=== PATIENT | female | born 1960 | race Caucasian/White ===

== ENCOUNTER → 2019-11-10 | Outpatient (REF) | payer OTHER ==
[2019-11-10 14:13] LABS: CREATININE FOR GFR 2.44 MG/DL (0.55-1.30); FREE T4 1.34 NG/DL (0.76-1.46); GLOMERULAR FILTRATION RATE 21.7 (>51); POTASSIUM SERUM 5.1 MEQ/L (3.5-5.1); THYROID STIMULATING HORMONE 0.947 uIU/ML (0.358-3.740); VALPROIC ACID (DEPAKOTE) 66.8 UG/ML (50.0-100.0)
[2019-11-10 15:03] LABS: HEMOGLOBIN A1c 5.3 %
== END ==
LOC: M SFHCPLAZ 09:39
PROVIDERS: ATTEND Family Medicine
DX: F25.9 Schizoaffective disorder, unspecified (principal); E03.9 Hypothyroidism, unspecified

== ENCOUNTER → 2019-11-18 | Outpatient (CLI) | payer OTHER ==
--- NOTE | 2019-11-18 14:59 | REP ---
Clinical: Chronic renal disease. Technique: Real time milligan scale ultrasound examination using curved array transducer. Findings: The bilateral kidneys are diffusely hyperechoic with scattered parenchymal echogenic foci carpeting the bilateral renal parenchyma which may represent tiny calcifications or renovascular disease. Bilateral renal cysts are also appreciated measuring up to 1.3 cm and 1.6 cm in the right kidney and 1.3 cm in left kidney. No hydronephrosis or discrete renal mass lesion identified. The bladder is unremarkable. Right kidney measures 10.8 x 5.5 x 4.3 cm Left kidney measures and 0.2 x 3.8 x 4.8 cm Impression: Diffusely hyperechoic kidneys with innumerable scattered tiny echogenic foci suggesting calcifications and bilateral cysts.
== END ==
LOC: M WHC 09:36
PROVIDERS: ATTEND Student in an Organized Health Care Education/Training Program
DX: N18.9 Chronic kidney disease, unspecified (principal); N28.1 Cyst of kidney, acquired; N28.89 Other specified disorders of kidney and ureter

== ENCOUNTER → 2019-12-07 | Outpatient (REF) | payer OTHER ==
[2019-12-07 17:52] LABS: ALBUMIN 2.8 GM/DL (3.2-5.2); BILIRUBIN,TOTAL 0.3 MG/DL (0.2-1.0); CALCIUM LEVEL 8.2 MG/DL (8.5-10.1); CHOLESTEROL RISK RATIO 2.569 (<5); CREATININE FOR GFR 2.15 MG/DL (0.55-1.30); GLOMERULAR FILTRATION RATE 25.1 (>51); POTASSIUM SERUM 5.1 MEQ/L (3.5-5.1); TOTAL PROTEIN 7.4 GM/DL (6.4-8.2)
[2019-12-07 17:59] LABS: HEMATOCRIT 35.2 % (36.0-47.0); HEMOGLOBIN 11.2 g/dl (12.0-15.5); MEAN CORPUSCULAR HEMOGLOBIN 31.5 pg (27.0-33.0); MEAN CORPUSCULAR HGB CONC 31.8 g/dl (32.0-36.5); MEAN CORPUSCULAR VOLUME 98.9 fl (80.0-96.0); PLATELET COUNT, AUTOMATED 287 10^3/uL (150-450); RED BLOOD COUNT 3.56 10^6/uL (4.00-5.40); WHITE BLOOD COUNT 9.5 10^3/uL (4.0-10.0)
[2019-12-07 18:18] LABS: CREATININE,RANDOM URINE < 13.0 MG/DL; SODIUM,RANDOM URINE 16 MEQ/L
[2019-12-07 18:51] LABS: APPEARANCE, URINE CLEAR (CLEAR); BACTERIA, URINE AUTO 1+ (NEGATIVE); BILIRUBIN, URINE AUTO NEGATIVE (NEGATIVE); BLOOD, URINE BLOOD NEGATIVE (NEGATIVE); COLOR, URINE STRAW (YELLOW); GLUCOSE, URINE (UA) AUTO NEGATIVE (NEGATIVE); KETONE, URINE AUTO NEGATIVE (NEGATIVE); LEUKOCYTE ESTERASE, URINE AUTO 2+ (NEGATIVE); NITRITE, URINE AUTO NEGATIVE (NEGATIVE); PROTEIN, URINE AUTO NEGATIVE (NEGATIVE); RBC, URINE AUTO 1 /HPF (0-3); SPECIFIC GRAVITY URINE AUTO 1.002 (1.002-1.035); SQUAMOUS EPITHELIAL CELL UR AU 0 /HPF (0-6); UROBILINOGEN, URINE AUTO 0.2 mg/dL (0.0-2.0); WBC, URINE AUTO 9 /HPF (0-3)
[2019-12-09 18:13] LABS: ANA (HEP2) Negative (.)
== END ==
LOC: M SFHCPLAZ 14:55
PROVIDERS: ATTEND Family Medicine
DX: Z51.81 Encounter for therapeutic drug level monitoring (principal); Z79.899 Other long term (current) drug therapy; N18.9 Chronic kidney disease, unspecified

== ENCOUNTER → 2020-02-16 | Outpatient (CLI) | payer OTHER | LOC: M WHC 13:30 | PROVIDERS: ATTEND Advanced Practice Midwife | DX: Z12.31 Encounter for screening mammogram for malignant neoplasm of breast (principal) ==

== ENCOUNTER → 2020-03-09 | Outpatient (CLI) | payer OTHER ==
[2020-03-09 09:42] LABS: BASO # 0.1 10^3/uL (0.0-0.2); BASO % 0.5 % (0.0-1.0); EOS # 0.2 10^3/uL (0.0-0.5); EOS % 1.9 % (0.0-3.0); HEMATOCRIT 40.7 % (36.0-47.0); HEMOGLOBIN 13.2 g/dl (12.0-15.5); LYMPH # 1.8 10^3/uL (1.5-5.0); LYMPH % 16.6 % (24.0-44.0); MEAN CORPUSCULAR HEMOGLOBIN 31.7 pg (27.0-33.0); MEAN CORPUSCULAR HGB CONC 32.4 g/dl (32.0-36.5); MEAN CORPUSCULAR VOLUME 97.6 fl (80.0-96.0); MONO # 1.5 10^3/uL (0.0-0.8); MONO % 13.8 % (0.0-5.0); NEUTROPHILS # 6.9 10^3/uL (1.5-8.5); NEUTROPHILS % 65.5 % (36.0-66.0); PLATELET COUNT, AUTOMATED 271 10^3/uL (150-450); RED BLOOD COUNT 4.17 10^6/uL (4.00-5.40); WHITE BLOOD COUNT 10.5 10^3/uL (4.0-10.0)
[2020-03-09 10:55] LABS: ALBUMIN 2.8 GM/DL (3.2-5.2); BILIRUBIN,DIRECT 0.2 MG/DL (0.0-0.2); BILIRUBIN,TOTAL 0.4 MG/DL (0.2-1.0); CALCIUM LEVEL 9.3 MG/DL (8.5-10.1); CHOLESTEROL RISK RATIO 2.75 (<5); CREATININE FOR GFR 2.05 MG/DL (0.55-1.30); GLOMERULAR FILTRATION RATE 26.5 (>51); THYROID STIMULATING HORMONE 0.684 uIU/ML (0.358-3.740); TOTAL PROTEIN 7.9 GM/DL (6.4-8.2); VALPROIC ACID (DEPAKOTE) 72.1 UG/ML (50.0-100.0)
[2020-03-09 12:19] LABS: HEMOGLOBIN A1c 5.5 %
== END ==
LOC: M LAB 08:51
PROVIDERS: ATTEND Registered Nurse
DX: F25.0 Schizoaffective disorder, bipolar type (principal)

== ENCOUNTER → 2020-05-13 | Outpatient (REF) | payer OTHER ==
[2020-05-13 14:05] LABS: FERRITIN 277 NG/ML (8-252); IRON (FE) 42 UG/DL (50-170); PERCENT SATURATION 20.8 % (13.2-45.0); TOTAL IRON BINDING CAPACITY 202 UG/DL (250-450); TOTAL PROTEIN 7.7 GM/DL (6.4-8.2)
[2020-05-13 14:09] LABS: VITAMIN B12 LEVEL > 2000 PG/ML
[2020-05-13 14:10] LABS: FOLATE 18.9 NG/ML
[2020-05-16 12:07] LABS: ALBUMIN 2.53 GM/DL (3.29-5.55); ALBUMIN % 32.9 % (55.8-66.1); ALPHA-1-GLOBULINS 0.46 GM/DL (0.17-0.41); ALPHA-2-GLOBULINS 0.93 GM/DL (0.42-0.99); ALPHA-2-GLOBULINS % 12.1 % (7.1-11.8); BETA-1-GLOBULINS % 4.9 % (4.7-7.2); BETA-2-GLOBULINS % 6.2 % (3.2-6.5); GAMMA GLOBULIN % 37.9 % (11.1-18.8)
[2020-05-16 12:08] LABS: BETA-1-GLOBULINS 0.38 GM/DL (0.28-0.60); BETA-2-GLOBULINS 0.48 GM/DL (0.19-0.55); GAMMA GLOBULINS 2.92 GM/DL (0.65-1.58)
== END ==
LOC: M LAB REF 12:40
PROVIDERS: ATTEND Internal Medicine Nephrology
DX: D64.9 Anemia, unspecified (principal); D72.829 Elevated white blood cell count, unspecified

== ENCOUNTER → 2020-06-14 | Outpatient (CLI) | payer OTHER ==
--- NOTE | 2020-06-14 10:58 | REPMRS ---
Patient History The patient states she has not had a clinical breast exam in over a year. Patient is postmenopausal and has history of ovarian cancer at age 26. Family history of prostate cancer in father, breast cancer in sister, breast cancer in sister. No Hormone Replacement Therapy 3D TOMOSYNTHESIS WAS PERFORMED. The [facility] lifetime risk for breast cancer is 7.5%. Volpara breast density c. Digital Woman Screen Mammo: June 14, 2020 - Exam #: [id number] Bilateral CC and MLO view(s) were taken. Technologist: Margot Lee, Technologist No prior studies available for comparison. FINDINGS: The breast tissue is heterogeneously dense. This may lower the sensitivity of mammography. There is a moderate amount of residual fibroglandular tissue which is fairly symmetric. There is no dominant mass, areas of architectural distortion, or clustered microcalcification typical of malignancy. Assessment: BI-RADS/ACR category 1 mammogram. Negative Mammogram. Recommendation Routine screening mammogram in 1 year (for women over age 40). This mammogram was interpreted with the aid of an FDA-approved computer-aided dectection system. Electronically Signed By: Dominick Fried MD 06/14/20 [id number]
== END ==
LOC: M WHC 10:08
PROVIDERS: ATTEND Family Medicine
DX: Z12.31 Encounter for screening mammogram for malignant neoplasm of breast (principal); Z85.43 Personal history of malignant neoplasm of ovary; Z80.3 Family history of malignant neoplasm of breast

== ENCOUNTER → 2020-06-20 | Outpatient (REF) | payer OTHER | LOC: M LAB REF 17:00 | PROVIDERS: ATTEND Internal Medicine Nephrology | DX: D64.9 Anemia, unspecified (principal) ==

== ENCOUNTER → 2020-10-06 | Outpatient (REF) | payer OTHER ==
[~2020-10-06] MED LIST: ASPE4PAD TOP; BUSP10TA PO; CHLO20TA PO; CHLOR50TA PO; DEPA1TAB3 PO; DEPA250T32 PO; FERR325T3 PO; MM S100C PO; NORV5TAB PO; NOXI1TAB PO; PURE500C5 PO; SYNT175T2 PO; ZYPR10TA PO
[2020-10-06 13:38] LABS: HEMATOCRIT 35.4 % (36.0-47.0); HEMOGLOBIN 11.6 g/dl (12.0-15.5); MEAN CORPUSCULAR HEMOGLOBIN 31.8 pg (27.0-33.0); MEAN CORPUSCULAR HGB CONC 32.8 g/dl (32.0-36.5); PLATELET COUNT, AUTOMATED 218 10^3/uL (150-450); RED BLOOD COUNT 3.65 10^6/uL (4.00-5.40)
[2020-10-06 14:07] LABS: CALCIUM LEVEL 9.3 MG/DL (8.5-10.1); CREATININE FOR GFR 2.01 MG/DL (0.55-1.30); PHOSPHORUS LEVEL 3.8 MG/DL (2.5-4.9); POTASSIUM SERUM 4.4 MEQ/L (3.5-5.1)
== END ==
LOC: M SFHCPLAZ 11:41
PROVIDERS: ATTEND Family Medicine
DX: N18.4 Chronic kidney disease, stage 4 (severe) (principal)

== ENCOUNTER → 2020-11-22 | Outpatient (CLI) | payer OTHER ==
[2020-11-22 09:54] LABS: BASO # 0.1 10^3/uL (0.0-0.2); BASO % 0.8 % (0.0-1.0); EOS # 0.1 10^3/uL (0.0-0.5); EOS % 1.7 % (0.0-3.0); HEMATOCRIT 39.4 % (36.0-47.0); HEMOGLOBIN 12.9 g/dl (12.0-15.5); LYMPH # 1.3 10^3/uL (1.5-5.0); LYMPH % 17.3 % (24.0-44.0); MEAN CORPUSCULAR HEMOGLOBIN 33.1 pg (27.0-33.0); MEAN CORPUSCULAR HGB CONC 32.7 g/dl (32.0-36.5); MONO # 1.4 10^3/uL (0.0-0.8); MONO % 17.8 % (2.0-8.0); NEUTROPHILS # 4.6 10^3/uL (1.5-8.5); NEUTROPHILS % 59.9 % (36.0-66.0); PLATELET COUNT, AUTOMATED 223 10^3/uL (150-450); WHITE BLOOD COUNT 7.6 10^3/uL (4.0-10.0)
[2020-11-22 10:30] LABS: BILIRUBIN,DIRECT 0.2 MG/DL (0.0-0.2); BILIRUBIN,TOTAL 0.3 MG/DL (0.2-1.0); CALCIUM LEVEL 9.2 MG/DL (8.5-10.1); CHOLESTEROL RISK RATIO 2.359 (<5); CREATININE FOR GFR 2.46 MG/DL (0.55-1.30); GLOMERULAR FILTRATION RATE 21.4 (>51); PHOSPHORUS LEVEL 4.6 MG/DL (2.5-4.9); POTASSIUM SERUM 5.1 MEQ/L (3.5-5.1); THYROID STIMULATING HORMONE 0.978 uIU/ML (0.358-3.740); TOTAL PROTEIN 7.8 GM/DL (6.4-8.2); VALPROIC ACID (DEPAKOTE) 74.7 UG/ML (50.0-100.0)
[2020-11-22 10:31] LABS: HEMOGLOBIN A1c 5.2 %
[2020-11-22 11:57] LABS: TOTAL 25(OH) VITAMIN D 32.8 NG/ML (30.0-100.0)
--- NOTE | 2020-11-22 23:34 | ECGEPIP ---
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 Fine baseline noise. No prior ECG available for comparison at the time of interpretation. Electronically Signed on 11-22-2020 23:34:30 EDT by Rickey Zuluaga
== END ==
LOC: M LAB 09:11
PROVIDERS: ATTEND Registered Nurse
DX: F25.9 Schizoaffective disorder, unspecified (principal)

== ENCOUNTER → 2021-01-19 | Outpatient (REF) | payer OTHER | LOC: M LAB REF 17:27 | PROVIDERS: ATTEND Internal Medicine Nephrology | DX: N18.4 Chronic kidney disease, stage 4 (severe) (principal) ==

== ENCOUNTER 2021-01-29 07:59 | Emergency (ER) | payer OTHER ==
[~2021-01-29] VITALS: Ht 170.2 cm; Wt 84.1 kg
[2021-01-29] MEDS ORDERED: VITA200016 (08:13)
[2021-01-29] MEDS ORDERED: ACET-683 (08:13)
[2021-01-29] MEDS ORDERED: ACETAMINOPHEN TAB 650MG DOSE (2X325MG) PO ONE (08:15)
[2021-01-29] MEDS ORDERED: traMADol 50 MG TAB PO ONE (08:15)
--- NOTE | 2021-01-29 08:39 | REP ---
INDICATION: trauma COMPARISON: None. TECHNIQUE: AP and frog-lateral views of the left femur FINDINGS: No acute fracture or dislocation. Skeletal structures, joint spaces, and surrounding soft tissues appear relatively normal. IMPRESSION: . No acute fracture or dislocation. <Electronically signed by Ezequiel Johnston > 01/29/21 [id number]
[2021-01-29] MEDS ORDERED: CANEMIS XX (10:06)
[2021-01-29 10:13] VITALS: BP 162/89
== END 2021-01-29 10:15 | disposition home or self-care (01) ==
LOC: M ED 07:59
DX: S70.12XA Contusion of left thigh, initial encounter (principal); W22.8XXA Striking against or struck by other objects, initial encounter; Y92.018 Other place in single-family (private) house as the place of occurrence of the external cause; J44.9 Chronic obstructive pulmonary disease, unspecified; F33.9 Major depressive disorder, recurrent, unspecified; F41.9 Anxiety disorder, unspecified; Z79.899 Other long term (current) drug therapy; Z88.5 Allergy status to narcotic agent; Z88.8 Allergy status to other drugs, medicaments and biological substances

== ENCOUNTER 2021-01-30 16:38 | Inpatient (IN) | payer OTHER ==
[~2021-01-30] VITALS: Ht 170.2 cm; Wt 83.6 kg
[~2021-01-30 16:38] MED LIST changes: +ACET-683; +CANEMIS XX; +VITA200016
[2021-01-31 03:42] LABS: BASO # 0.1 10^3/uL (0.0-0.2); BASO % 0.6 % (0.0-1.0); EOS # 0.1 10^3/uL (0.0-0.5); EOS % 1.1 % (0.0-3.0); HEMATOCRIT 41.5 % (36.0-47.0); HEMOGLOBIN 13.5 g/dl (12.0-15.5); LYMPH # 1.3 10^3/uL (1.5-5.0); LYMPH % 15.5 % (24.0-44.0); MEAN CORPUSCULAR HEMOGLOBIN 32.9 pg (27.0-33.0); MEAN CORPUSCULAR HGB CONC 32.5 g/dl (32.0-36.5); MEAN CORPUSCULAR VOLUME 101.2 fl (80.0-96.0); MONO # 1.6 10^3/uL (0.0-0.8); MONO % 19.8 % (2.0-8.0); NEUTROPHILS % 60.8 % (36.0-66.0); PLATELET COUNT, AUTOMATED 214 10^3/uL (150-450)
[2021-01-31 04:00] LABS: WHITE BLOOD COUNT 8.3 10^3/uL (4.0-10.0)
[2021-01-31] MEDS ORDERED: NORCO, ANEXSIA 5/325MG TABLET (HYDROcodone/ACETAMINOPHEN) PO ONE (04:15)
[2021-01-31] MEDS ORDERED: VENTAER INH (06:55)
[2021-01-31] MEDS ORDERED: AMMO12CR7 TOP (06:55)
[2021-01-31] MEDS ORDERED: VITA200021 PO (06:55)
[2021-01-31] MEDS ORDERED: CHLOR50TA PO (06:55)
[2021-01-31] MEDS ORDERED: DOCU100C17 PO (06:55)
[2021-01-31] MEDS ORDERED: ACET-897 PO (06:55)
[2021-01-31] MEDS ORDERED: NORV5TAB PO (06:55)
[2021-01-31] MEDS ORDERED: CHLO200T11 PO (06:55)
[2021-01-31] MEDS ORDERED: VITA500T10 PO (06:55)
[2021-01-31] MEDS ORDERED: DIVA250T67 PO (06:55)
[2021-01-31] MEDS ORDERED: VITA1TAB35 PO (06:55)
[2021-01-31] MEDS ORDERED: SYNT175T2 PO (06:55)
[2021-01-31] MEDS ORDERED: HOME MED LIST COMPLETE! XX SCH (07:00)
[2021-01-31 07:24] LABS: RSV AMPLIFICATION NEGATIVE (NEGATIVE)
[2021-01-31] MEDS ORDERED: ALBUTEROL 90 MCG/ACT 8GM HFA INHALER INH PRN (08:00)
[2021-01-31] MEDS: ACETAMINOPHEN 500 MG TAB PO PRN ×2 (08:13→22:08)
[2021-01-31 09:45] VITALS: BP 145/84
[2021-01-31] MEDS: DIVALPROEX 500 MG TAB PO SCH ×2 (10:30→22:05)
[2021-01-31] MEDS: ChlorproMAZINE 100 MG TABLET PO SCH ×2 (10:30→22:05)
[2021-01-31] MEDS: FERROUS SULFATE 325MG TAB PO SCH (10:30)
[2021-01-31] MEDS: LEVOTHYROXINE 25MCG TABLET (0.025MG) PO SCH (10:30)
[2021-01-31] MEDS: HEPARIN SOD (PORCINE) 5000UNITS/ML 1ML VIAL/SYRINGE SC SCH ×2 (10:30→22:06)
[2021-01-31] MEDS: busPIRone 10 MG TAB PO SCH ×2 (10:30→22:05)
[2021-01-31] MEDS: OLANZapine 10 MG TAB PO SCH (10:30)
[2021-01-31] MEDS: DIVALPROEX 250 MG TAB PO SCH ×2 (10:31→22:04)
[2021-01-31] MEDS: LEVOTHYROXINE 150MCG TABLET (0.15MG) PO SCH (10:31)
[2021-01-31] MEDS: ASCORBIC ACID 500 MG TAB PO SCH (10:31)
[2021-01-31] MEDS: DOCUSATE SODIUM 100MG CAPSULE PO SCH ×2 (10:31→22:05)
[2021-01-31] MEDS: LACTIC ACID 12% LOTION 225 GM BTL TOP SCH (10:35)
[2021-01-31] MEDS: chlorproMAZINE 25 MG TABLET PO SCH ×2 (10:35→14:00)
[2021-01-31 14:00] VITALS: BP 148/85
[2021-01-31 22:00] VITALS: BP 148/87
[2021-01-31] MEDS: amLODIPine 5 MG TAB PO SCH (22:05)
[2021-02-01] MEDS: LEVOTHYROXINE 25MCG TABLET (0.025MG) PO SCH (05:32)
[2021-02-01] MEDS: LEVOTHYROXINE 150MCG TABLET (0.15MG) PO SCH (05:32)
[2021-02-01 06:32] LABS: HEMATOCRIT 35.4 % (36.0-47.0); HEMOGLOBIN 11.7 g/dl (12.0-15.5); MEAN CORPUSCULAR HEMOGLOBIN 33.1 pg (27.0-33.0); MEAN CORPUSCULAR HGB CONC 33.1 g/dl (32.0-36.5); MEAN CORPUSCULAR VOLUME 100.3 fl (80.0-96.0); PLATELET COUNT, AUTOMATED 184 10^3/uL (150-450); RED BLOOD COUNT 3.53 10^6/uL (4.00-5.40); WHITE BLOOD COUNT 6.5 10^3/uL (4.0-10.0)
[2021-02-01 06:40] LABS: CALCIUM LEVEL 8.9 MG/DL (8.5-10.1); CREATININE FOR GFR 2.52 MG/DL (0.55-1.30); GLOMERULAR FILTRATION RATE 20.8 (>51); MAGNESIUM LEVEL 2.4 MG/DL (1.8-2.4); POTASSIUM SERUM 4.7 MEQ/L (3.5-5.1)
[2021-02-01] MEDS: DOCUSATE SODIUM 100MG CAPSULE PO SCH ×2 (08:32→22:12)
[2021-02-01] MEDS: DIVALPROEX 500 MG TAB PO SCH ×2 (08:32→22:12)
[2021-02-01] MEDS: HEPARIN SOD (PORCINE) 5000UNITS/ML 1ML VIAL/SYRINGE SC SCH ×2 (08:33→22:13)
[2021-02-01] MEDS: DIVALPROEX 250 MG TAB PO SCH ×2 (08:33→22:12)
[2021-02-01] MEDS: chlorproMAZINE 25 MG TABLET PO SCH ×2 (08:33→15:18)
[2021-02-01] MEDS: OLANZapine 10 MG TAB PO SCH (08:33)
[2021-02-01] MEDS: ASCORBIC ACID 500 MG TAB PO SCH (08:33)
[2021-02-01] MEDS: busPIRone 10 MG TAB PO SCH ×2 (08:33→22:12)
[2021-02-01] MEDS: FERROUS SULFATE 325MG TAB PO SCH (08:33)
[2021-02-01] MEDS: LACTIC ACID 12% LOTION 225 GM BTL TOP SCH (08:34)
[2021-02-01] MEDS: GABAPENTIN 100 MG CAP PO SCH ×3 (10:20→22:12)
[2021-02-01 14:00] VITALS: BP 127/84
[2021-02-01 22:00] VITALS: BP 129/88
[2021-02-01] MEDS: ChlorproMAZINE 100 MG TABLET PO SCH (22:12)
[2021-02-01] MEDS: amLODIPine 5 MG TAB PO SCH (22:13)
[2021-02-01] MEDS: ACETAMINOPHEN 500 MG TAB PO PRN (22:14)
[2021-02-02] MEDS: LEVOTHYROXINE 150MCG TABLET (0.15MG) PO SCH (05:29)
[2021-02-02] MEDS: LEVOTHYROXINE 25MCG TABLET (0.025MG) PO SCH (05:29)
[2021-02-02 06:00] VITALS: BP 115/68
[2021-02-02 06:08] LABS: HEMATOCRIT 36.3 % (36.0-47.0); HEMOGLOBIN 11.6 g/dl (12.0-15.5); MEAN CORPUSCULAR HEMOGLOBIN 32.3 pg (27.0-33.0); MEAN CORPUSCULAR VOLUME 101.1 fl (80.0-96.0); PLATELET COUNT, AUTOMATED 195 10^3/uL (150-450); RED BLOOD COUNT 3.59 10^6/uL (4.00-5.40); WHITE BLOOD COUNT 7.2 10^3/uL (4.0-10.0)
[2021-02-02 06:28] LABS: CALCIUM LEVEL 8.8 MG/DL (8.5-10.1); CREATININE FOR GFR 2.76 MG/DL (0.55-1.30); GLOMERULAR FILTRATION RATE 18.7 (>51); MAGNESIUM LEVEL 2.5 MG/DL (1.8-2.4); POTASSIUM SERUM 4.9 MEQ/L (3.5-5.1)
[2021-02-02] MEDS: OLANZapine 10 MG TAB PO SCH (09:02)
[2021-02-02] MEDS: DIVALPROEX 250 MG TAB PO SCH ×2 (09:02→20:41)
[2021-02-02] MEDS: DIVALPROEX 500 MG TAB PO SCH ×2 (09:03→20:41)
[2021-02-02] MEDS: DOCUSATE SODIUM 100MG CAPSULE PO SCH ×2 (09:03→20:41)
[2021-02-02] MEDS: HEPARIN SOD (PORCINE) 5000UNITS/ML 1ML VIAL/SYRINGE SC SCH ×2 (09:03→20:42)
[2021-02-02] MEDS: FERROUS SULFATE 325MG TAB PO SCH (09:03)
[2021-02-02] MEDS: ASCORBIC ACID 500 MG TAB PO SCH (09:03)
[2021-02-02] MEDS: GABAPENTIN 100 MG CAP PO SCH ×3 (09:03→20:41)
[2021-02-02] MEDS: busPIRone 10 MG TAB PO SCH ×2 (09:03→20:41)
[2021-02-02] MEDS: LACTIC ACID 12% LOTION 225 GM BTL TOP SCH (09:04)
[2021-02-02] MEDS: chlorproMAZINE 25 MG TABLET PO SCH ×2 (09:06→15:09)
[2021-02-02 14:00] VITALS: BP 133/84
[2021-02-02] MEDS: ChlorproMAZINE 100 MG TABLET PO SCH (20:41)
[2021-02-02] MEDS: amLODIPine 5 MG TAB PO SCH (20:42)
[2021-02-03 05:00] VITALS: BP_SYST 128; BP_SYST 132; BP_DIAS 64; BP_DIAS 82
[2021-02-03] MEDS: LEVOTHYROXINE 150MCG TABLET (0.15MG) PO SCH (05:41)
[2021-02-03] MEDS: LEVOTHYROXINE 25MCG TABLET (0.025MG) PO SCH (05:41)
[2021-02-03 07:37] LABS: HEMATOCRIT 38.1 % (36.0-47.0); HEMOGLOBIN 12.4 g/dl (12.0-15.5); MEAN CORPUSCULAR HEMOGLOBIN 32.7 pg (27.0-33.0); MEAN CORPUSCULAR HGB CONC 32.5 g/dl (32.0-36.5); MEAN CORPUSCULAR VOLUME 100.5 fl (80.0-96.0); PLATELET COUNT, AUTOMATED 216 10^3/uL (150-450); RED BLOOD COUNT 3.79 10^6/uL (4.00-5.40)
[2021-02-03 08:01] LABS: CALCIUM LEVEL 9.1 MG/DL (8.5-10.1); CREATININE FOR GFR 2.81 MG/DL (0.55-1.30); GLOMERULAR FILTRATION RATE 18.3 (>51); MAGNESIUM LEVEL 2.6 MG/DL (1.8-2.4); POTASSIUM SERUM 4.6 MEQ/L (3.5-5.1)
[2021-02-03] MEDS: FERROUS SULFATE 325MG TAB PO SCH (08:56)
[2021-02-03] MEDS: GABAPENTIN 100 MG CAP PO SCH ×3 (08:57→20:52)
[2021-02-03] MEDS: HEPARIN SOD (PORCINE) 5000UNITS/ML 1ML VIAL/SYRINGE SC SCH ×2 (08:57→20:52)
[2021-02-03] MEDS: chlorproMAZINE 25 MG TABLET PO SCH ×2 (08:57→15:35)
[2021-02-03] MEDS: DIVALPROEX 500 MG TAB PO SCH ×2 (08:57→20:52)
[2021-02-03] MEDS: busPIRone 10 MG TAB PO SCH ×2 (08:57→20:52)
[2021-02-03] MEDS: ASCORBIC ACID 500 MG TAB PO SCH (08:57)
[2021-02-03] MEDS: DIVALPROEX 250 MG TAB PO SCH ×2 (08:57→20:52)
[2021-02-03] MEDS: OLANZapine 10 MG TAB PO SCH (08:57)
[2021-02-03] MEDS: DOCUSATE SODIUM 100MG CAPSULE PO SCH ×2 (08:57→20:51)
[2021-02-03] MEDS: LACTIC ACID 12% LOTION 225 GM BTL TOP SCH (08:58)
[2021-02-03] MEDS: ACETAMINOPHEN 500 MG TAB PO PRN (15:36)
[2021-02-03] MEDS: amLODIPine 5 MG TAB PO SCH (20:53)
[2021-02-03] MEDS: ChlorproMAZINE 100 MG TABLET PO SCH (20:55)
[2021-02-04] MEDS: LEVOTHYROXINE 25MCG TABLET (0.025MG) PO SCH (05:25)
[2021-02-04] MEDS: LEVOTHYROXINE 150MCG TABLET (0.15MG) PO SCH (05:25)
[2021-02-04 06:00] VITALS: BP 133/60
[2021-02-04 06:06] LABS: HEMATOCRIT 34.1 % (36.0-47.0); HEMOGLOBIN 11.1 g/dl (12.0-15.5); MEAN CORPUSCULAR HEMOGLOBIN 32.8 pg (27.0-33.0); MEAN CORPUSCULAR HGB CONC 32.6 g/dl (32.0-36.5); MEAN CORPUSCULAR VOLUME 100.9 fl (80.0-96.0); PLATELET COUNT, AUTOMATED 192 10^3/uL (150-450); RED BLOOD COUNT 3.38 10^6/uL (4.00-5.40); WHITE BLOOD COUNT 8.9 10^3/uL (4.0-10.0)
[2021-02-04 06:32] LABS: CALCIUM LEVEL 8.7 MG/DL (8.5-10.1); CREATININE FOR GFR 2.66 MG/DL (0.55-1.30); GLOMERULAR FILTRATION RATE 19.5 (>51); MAGNESIUM LEVEL 2.7 MG/DL (1.8-2.4); POTASSIUM SERUM 5.3 MEQ/L (3.5-5.1)
[2021-02-04] MEDS: HEPARIN SOD (PORCINE) 5000UNITS/ML 1ML VIAL/SYRINGE SC SCH ×2 (09:45→21:02)
[2021-02-04] MEDS: ASCORBIC ACID 500 MG TAB PO SCH (09:45)
[2021-02-04] MEDS: DOCUSATE SODIUM 100MG CAPSULE PO SCH ×2 (09:45→21:01)
[2021-02-04] MEDS: busPIRone 10 MG TAB PO SCH ×2 (09:46→21:01)
[2021-02-04] MEDS: DIVALPROEX 250 MG TAB PO SCH ×2 (09:46→21:01)
[2021-02-04] MEDS: chlorproMAZINE 25 MG TABLET PO SCH ×2 (09:46→14:38)
[2021-02-04] MEDS: FERROUS SULFATE 325MG TAB PO SCH (09:46)
[2021-02-04] MEDS: DIVALPROEX 500 MG TAB PO SCH ×2 (09:46→21:01)
[2021-02-04] MEDS: GABAPENTIN 100 MG CAP PO SCH ×3 (09:46→21:01)
[2021-02-04] MEDS: LACTIC ACID 12% LOTION 225 GM BTL TOP SCH (09:47)
[2021-02-04] MEDS: OLANZapine 10 MG TAB PO SCH (09:47)
[2021-02-04] MEDS: ACETAMINOPHEN 500 MG TAB PO PRN (16:39)
[2021-02-04] MEDS: ChlorproMAZINE 100 MG TABLET PO SCH (21:01)
[2021-02-04] MEDS: amLODIPine 5 MG TAB PO SCH (21:02)
[2021-02-05] MEDS: LEVOTHYROXINE 25MCG TABLET (0.025MG) PO SCH (05:46)
[2021-02-05] MEDS: LEVOTHYROXINE 150MCG TABLET (0.15MG) PO SCH (05:46)
[2021-02-05 06:00] VITALS: BP 118/80
[2021-02-05 06:29] LABS: HEMATOCRIT 33.6 % (36.0-47.0); HEMOGLOBIN 10.9 g/dl (12.0-15.5); MEAN CORPUSCULAR HEMOGLOBIN 32.5 pg (27.0-33.0); MEAN CORPUSCULAR HGB CONC 32.4 g/dl (32.0-36.5); MEAN CORPUSCULAR VOLUME 100.3 fl (80.0-96.0); PLATELET COUNT, AUTOMATED 217 10^3/uL (150-450); RED BLOOD COUNT 3.35 10^6/uL (4.00-5.40); WHITE BLOOD COUNT 8.4 10^3/uL (4.0-10.0)
[2021-02-05 06:50] LABS: CALCIUM LEVEL 9.1 MG/DL (8.5-10.1); CREATININE FOR GFR 2.71 MG/DL (0.55-1.30); GLOMERULAR FILTRATION RATE 19.1 (>51); MAGNESIUM LEVEL 2.9 MG/DL (1.8-2.4); POTASSIUM SERUM 5.2 MEQ/L (3.5-5.1)
[2021-02-05] MEDS: HEPARIN SOD (PORCINE) 5000UNITS/ML 1ML VIAL/SYRINGE SC SCH ×2 (08:46→20:56)
[2021-02-05] MEDS: ASCORBIC ACID 500 MG TAB PO SCH (08:47)
[2021-02-05] MEDS: DIVALPROEX 250 MG TAB PO SCH ×2 (08:47→20:57)
[2021-02-05] MEDS: ACETAMINOPHEN 500 MG TAB PO PRN ×2 (08:47→15:23)
[2021-02-05] MEDS: FERROUS SULFATE 325MG TAB PO SCH (08:47)
[2021-02-05] MEDS: OLANZapine 10 MG TAB PO SCH (08:47)
[2021-02-05] MEDS: DIVALPROEX 500 MG TAB PO SCH ×2 (08:47→20:57)
[2021-02-05] MEDS: DOCUSATE SODIUM 100MG CAPSULE PO SCH ×2 (08:47→20:54)
[2021-02-05] MEDS: busPIRone 10 MG TAB PO SCH ×2 (08:47→20:56)
[2021-02-05] MEDS: GABAPENTIN 100 MG CAP PO SCH ×3 (08:47→20:56)
[2021-02-05] MEDS: LACTIC ACID 12% LOTION 225 GM BTL TOP SCH (08:48)
[2021-02-05] MEDS: chlorproMAZINE 25 MG TABLET PO SCH ×2 (08:51→14:28)
[2021-02-05] MEDS: ChlorproMAZINE 100 MG TABLET PO SCH (20:56)
[2021-02-05] MEDS: amLODIPine 5 MG TAB PO SCH (20:56)
[2021-02-06] MEDS: ACETAMINOPHEN 500 MG TAB PO PRN ×2 (02:34→20:36)
[2021-02-06] MEDS: LEVOTHYROXINE 150MCG TABLET (0.15MG) PO SCH (05:29)
[2021-02-06] MEDS: LEVOTHYROXINE 25MCG TABLET (0.025MG) PO SCH (05:29)
[2021-02-06 06:00] VITALS: BP 129/87
[2021-02-06 06:39] LABS: HEMATOCRIT 35.8 % (36.0-47.0); HEMOGLOBIN 11.6 g/dl (12.0-15.5); MEAN CORPUSCULAR HEMOGLOBIN 32.8 pg (27.0-33.0); MEAN CORPUSCULAR HGB CONC 32.4 g/dl (32.0-36.5); MEAN CORPUSCULAR VOLUME 101.1 fl (80.0-96.0); PLATELET COUNT, AUTOMATED 248 10^3/uL (150-450); RED BLOOD COUNT 3.54 10^6/uL (4.00-5.40)
[2021-02-06 07:05] LABS: CALCIUM LEVEL 9.1 MG/DL (8.5-10.1); CREATININE FOR GFR 2.67 MG/DL (0.55-1.30); GLOMERULAR FILTRATION RATE 19.5 (>51); MAGNESIUM LEVEL 2.8 MG/DL (1.8-2.4); POTASSIUM SERUM 5.4 MEQ/L (3.5-5.1)
[2021-02-06] MEDS: busPIRone 10 MG TAB PO SCH ×2 (08:14→20:15)
[2021-02-06] MEDS: DIVALPROEX 250 MG TAB PO SCH ×2 (08:14→20:15)
[2021-02-06] MEDS: FERROUS SULFATE 325MG TAB PO SCH (08:14)
[2021-02-06] MEDS: ASCORBIC ACID 500 MG TAB PO SCH (08:14)
[2021-02-06] MEDS: DOCUSATE SODIUM 100MG CAPSULE PO SCH ×2 (08:14→20:15)
[2021-02-06] MEDS: chlorproMAZINE 25 MG TABLET PO SCH ×2 (08:15→13:16)
[2021-02-06] MEDS: DIVALPROEX 500 MG TAB PO SCH ×2 (08:15→20:15)
[2021-02-06] MEDS: LACTIC ACID 12% LOTION 225 GM BTL TOP SCH ×2 (08:15→08:16)
[2021-02-06] MEDS: HEPARIN SOD (PORCINE) 5000UNITS/ML 1ML VIAL/SYRINGE SC SCH ×2 (08:15→20:21)
[2021-02-06] MEDS: OLANZapine 10 MG TAB PO SCH (08:15)
[2021-02-06] MEDS: SENNA 8.6 MG TAB (SENOKOT) PO PRN (13:16)
[2021-02-06] MEDS: ChlorproMAZINE 100 MG TABLET PO SCH (20:15)
[2021-02-06] MEDS: amLODIPine 5 MG TAB PO SCH (20:19)
[2021-02-07] MEDS: LEVOTHYROXINE 150MCG TABLET (0.15MG) PO SCH (05:33)
[2021-02-07] MEDS: LEVOTHYROXINE 25MCG TABLET (0.025MG) PO SCH (05:33)
[2021-02-07] MEDS: ACETAMINOPHEN 500 MG TAB PO PRN ×2 (05:38→20:46)
[2021-02-07 06:28] LABS: HEMATOCRIT 34.5 % (36.0-47.0); HEMOGLOBIN 11.1 g/dl (12.0-15.5); MEAN CORPUSCULAR HEMOGLOBIN 32.5 pg (27.0-33.0); MEAN CORPUSCULAR HGB CONC 32.2 g/dl (32.0-36.5); MEAN CORPUSCULAR VOLUME 100.9 fl (80.0-96.0); PLATELET COUNT, AUTOMATED 250 10^3/uL (150-450); RED BLOOD COUNT 3.42 10^6/uL (4.00-5.40); WHITE BLOOD COUNT 9.7 10^3/uL (4.0-10.0)
[2021-02-07 06:51] LABS: CREATININE FOR GFR 2.58 MG/DL (0.55-1.30); GLOMERULAR FILTRATION RATE 20.2 (>51); MAGNESIUM LEVEL 2.7 MG/DL (1.8-2.4); POTASSIUM SERUM 5.3 MEQ/L (3.5-5.1)
[2021-02-07] MEDS: HEPARIN SOD (PORCINE) 5000UNITS/ML 1ML VIAL/SYRINGE SC SCH ×2 (09:27→20:31)
[2021-02-07] MEDS: DIVALPROEX 250 MG TAB PO SCH ×2 (09:28→20:26)
[2021-02-07] MEDS: FERROUS SULFATE 325MG TAB PO SCH (09:28)
[2021-02-07] MEDS: DIVALPROEX 500 MG TAB PO SCH ×2 (09:28→20:26)
[2021-02-07] MEDS: DOCUSATE SODIUM 100MG CAPSULE PO SCH ×2 (09:29→20:26)
[2021-02-07] MEDS: ASCORBIC ACID 500 MG TAB PO SCH (09:29)
[2021-02-07] MEDS: busPIRone 10 MG TAB PO SCH ×2 (09:29→20:26)
[2021-02-07] MEDS: OLANZapine 10 MG TAB PO SCH (09:29)
[2021-02-07] MEDS: chlorproMAZINE 25 MG TABLET PO SCH ×2 (09:29→13:27)
[2021-02-07] MEDS: LACTIC ACID 12% LOTION 225 GM BTL TOP SCH (09:30)
[2021-02-07] MEDS: SENNA 8.6 MG TAB (SENOKOT) PO PRN (13:27)
[2021-02-07] MEDS: ChlorproMAZINE 100 MG TABLET PO SCH (20:26)
[2021-02-07] MEDS: amLODIPine 5 MG TAB PO SCH (20:31)
[2021-02-08] MEDS: LEVOTHYROXINE 25MCG TABLET (0.025MG) PO SCH (05:57)
[2021-02-08] MEDS: LEVOTHYROXINE 150MCG TABLET (0.15MG) PO SCH (05:58)
[2021-02-08 06:00] VITALS: BP 139/93
[2021-02-08 07:58] LABS: HEMATOCRIT 35.4 % (36.0-47.0); HEMOGLOBIN 11.5 g/dl (12.0-15.5); MEAN CORPUSCULAR HGB CONC 32.5 g/dl (32.0-36.5); MEAN CORPUSCULAR VOLUME 101.4 fl (80.0-96.0); PLATELET COUNT, AUTOMATED 257 10^3/uL (150-450); RED BLOOD COUNT 3.49 10^6/uL (4.00-5.40)
[2021-02-08 08:25] LABS: CALCIUM LEVEL 9.4 MG/DL (8.5-10.1); CREATININE FOR GFR 2.41 MG/DL (0.55-1.30); GLOMERULAR FILTRATION RATE 21.9 (>51); MAGNESIUM LEVEL 2.6 MG/DL (1.8-2.4); POTASSIUM SERUM 5.3 MEQ/L (3.5-5.1)
[2021-02-08] MEDS: HEPARIN SOD (PORCINE) 5000UNITS/ML 1ML VIAL/SYRINGE SC SCH ×2 (10:32→20:37)
[2021-02-08] MEDS: DIVALPROEX 250 MG TAB PO SCH ×2 (10:32→20:35)
[2021-02-08] MEDS: chlorproMAZINE 25 MG TABLET PO SCH ×2 (10:33→15:15)
[2021-02-08] MEDS: DIVALPROEX 500 MG TAB PO SCH ×2 (10:33→20:35)
[2021-02-08] MEDS: busPIRone 10 MG TAB PO SCH ×2 (10:33→20:36)
[2021-02-08] MEDS: DOCUSATE SODIUM 100MG CAPSULE PO SCH ×2 (10:33→20:36)
[2021-02-08] MEDS: ASCORBIC ACID 500 MG TAB PO SCH (10:33)
[2021-02-08] MEDS: OLANZapine 10 MG TAB PO SCH (10:34)
[2021-02-08] MEDS: FERROUS SULFATE 325MG TAB PO SCH (10:34)
[2021-02-08] MEDS: LACTIC ACID 12% LOTION 225 GM BTL TOP SCH (10:34)
[2021-02-08] MEDS ORDERED: FUROSEMIDE 20 MG TAB PO ONE (14:15)
[2021-02-08] MEDS: amLODIPine 5 MG TAB PO SCH (20:36)
[2021-02-08] MEDS: ChlorproMAZINE 100 MG TABLET PO SCH (20:36)
[2021-02-09] MEDS: LEVOTHYROXINE 25MCG TABLET (0.025MG) PO SCH (05:29)
[2021-02-09] MEDS: LEVOTHYROXINE 150MCG TABLET (0.15MG) PO SCH (05:29)
[2021-02-09 06:00] VITALS: BP 125/71
[2021-02-09 08:20] LABS: HEMATOCRIT 37.5 % (36.0-47.0); HEMOGLOBIN 12.3 g/dl (12.0-15.5); MEAN CORPUSCULAR HEMOGLOBIN 32.5 pg (27.0-33.0); MEAN CORPUSCULAR HGB CONC 32.8 g/dl (32.0-36.5); MEAN CORPUSCULAR VOLUME 98.9 fl (80.0-96.0); PLATELET COUNT, AUTOMATED 266 10^3/uL (150-450); RED BLOOD COUNT 3.79 10^6/uL (4.00-5.40); WHITE BLOOD COUNT 8.8 10^3/uL (4.0-10.0)
[2021-02-09 08:40] LABS: CALCIUM LEVEL 10.4 MG/DL (8.5-10.1); CREATININE FOR GFR 2.41 MG/DL (0.55-1.30); GLOMERULAR FILTRATION RATE 21.9 (>51); POTASSIUM SERUM 4.8 MEQ/L (3.5-5.1)
[2021-02-09 08:45] VITALS: BP 126/80
[2021-02-09] MEDS: ASCORBIC ACID 500 MG TAB PO SCH (10:26)
[2021-02-09] MEDS: DIVALPROEX 500 MG TAB PO SCH ×2 (10:26→21:21)
[2021-02-09] MEDS: DIVALPROEX 250 MG TAB PO SCH ×2 (10:26→21:21)
[2021-02-09] MEDS: FERROUS SULFATE 325MG TAB PO SCH (10:27)
[2021-02-09] MEDS: DOCUSATE SODIUM 100MG CAPSULE PO SCH ×2 (10:27→21:21)
[2021-02-09] MEDS: HEPARIN SOD (PORCINE) 5000UNITS/ML 1ML VIAL/SYRINGE SC SCH ×2 (10:28→21:22)
[2021-02-09] MEDS: OLANZapine 10 MG TAB PO SCH (10:29)
[2021-02-09] MEDS: ACETAMINOPHEN 500 MG TAB PO PRN (10:29)
[2021-02-09] MEDS: FUROSEMIDE 20 MG TAB PO SCH (10:30)
[2021-02-09] MEDS: busPIRone 10 MG TAB PO SCH ×2 (10:30→21:21)
[2021-02-09] MEDS: chlorproMAZINE 25 MG TABLET PO SCH ×2 (10:30→13:56)
[2021-02-09] MEDS: LACTIC ACID 12% LOTION 225 GM BTL TOP SCH (10:31)
[2021-02-09 11:55] VITALS: BP 148/98
[2021-02-09 11:56] VITALS: BP 148/98
[2021-02-09] MEDS: ChlorproMAZINE 100 MG TABLET PO SCH (21:21)
[2021-02-09] MEDS: amLODIPine 5 MG TAB PO SCH (21:22)
[2021-02-10] MEDS: ACETAMINOPHEN 500 MG TAB PO PRN (04:26)
[2021-02-10] MEDS: LEVOTHYROXINE 150MCG TABLET (0.15MG) PO SCH (05:35)
[2021-02-10] MEDS: LEVOTHYROXINE 25MCG TABLET (0.025MG) PO SCH (05:35)
[2021-02-10 06:00] VITALS: BP 124/71
[2021-02-10] MEDS: DIVALPROEX 250 MG TAB PO SCH ×2 (08:19→20:12)
[2021-02-10] MEDS: DIVALPROEX 500 MG TAB PO SCH ×2 (08:19→20:12)
[2021-02-10] MEDS: OLANZapine 10 MG TAB PO SCH (08:19)
[2021-02-10] MEDS: busPIRone 10 MG TAB PO SCH ×2 (08:19→20:12)
[2021-02-10] MEDS: ASCORBIC ACID 500 MG TAB PO SCH (08:19)
[2021-02-10] MEDS: FUROSEMIDE 20 MG TAB PO SCH (08:19)
[2021-02-10] MEDS: FERROUS SULFATE 325MG TAB PO SCH (08:19)
[2021-02-10] MEDS: DOCUSATE SODIUM 100MG CAPSULE PO SCH ×2 (08:19→20:12)
[2021-02-10] MEDS: chlorproMAZINE 25 MG TABLET PO SCH ×2 (08:19→14:14)
[2021-02-10] MEDS: LACTIC ACID 12% LOTION 225 GM BTL TOP SCH (08:20)
[2021-02-10] MEDS: HEPARIN SOD (PORCINE) 5000UNITS/ML 1ML VIAL/SYRINGE SC SCH ×2 (08:20→20:16)
[2021-02-10] MEDS: amLODIPine 5 MG TAB PO SCH (20:15)
[2021-02-10] MEDS: ChlorproMAZINE 100 MG TABLET PO SCH (20:20)
[2021-02-11 06:00] VITALS: BP 117/72
[2021-02-11] MEDS: LEVOTHYROXINE 150MCG TABLET (0.15MG) PO SCH (06:45)
[2021-02-11] MEDS: LEVOTHYROXINE 25MCG TABLET (0.025MG) PO SCH (06:45)
[2021-02-11] MEDS: DIVALPROEX 250 MG TAB PO SCH ×2 (08:14→21:39)
[2021-02-11] MEDS: chlorproMAZINE 25 MG TABLET PO SCH ×2 (08:14→14:32)
[2021-02-11] MEDS: FUROSEMIDE 20 MG TAB PO SCH (08:14)
[2021-02-11] MEDS: busPIRone 10 MG TAB PO SCH ×2 (08:14→21:44)
[2021-02-11] MEDS: DIVALPROEX 500 MG TAB PO SCH ×2 (08:14→21:40)
[2021-02-11] MEDS: OLANZapine 10 MG TAB PO SCH (08:14)
[2021-02-11] MEDS: ASCORBIC ACID 500 MG TAB PO SCH (08:14)
[2021-02-11] MEDS: FERROUS SULFATE 325MG TAB PO SCH (08:14)
[2021-02-11] MEDS: DOCUSATE SODIUM 100MG CAPSULE PO SCH ×2 (08:14→21:40)
[2021-02-11] MEDS: LACTIC ACID 12% LOTION 225 GM BTL TOP SCH (08:15)
[2021-02-11] MEDS: HEPARIN SOD (PORCINE) 5000UNITS/ML 1ML VIAL/SYRINGE SC SCH ×2 (08:15→21:43)
[2021-02-11] MEDS: ChlorproMAZINE 100 MG TABLET PO SCH (21:40)
[2021-02-11] MEDS: amLODIPine 5 MG TAB PO SCH (21:43)
[2021-02-11] MEDS: ACETAMINOPHEN 500 MG TAB PO PRN (21:44)
[2021-02-12 06:00] VITALS: BP 123/79
[2021-02-12] MEDS: LEVOTHYROXINE 150MCG TABLET (0.15MG) PO SCH (06:06)
[2021-02-12] MEDS: LEVOTHYROXINE 25MCG TABLET (0.025MG) PO SCH (06:06)
[2021-02-12] MEDS: chlorproMAZINE 25 MG TABLET PO SCH ×3 (09:21→22:28)
[2021-02-12] MEDS: OLANZapine 10 MG TAB PO SCH (09:21)
[2021-02-12] MEDS: FUROSEMIDE 20 MG TAB PO SCH (09:21)
[2021-02-12] MEDS: busPIRone 10 MG TAB PO SCH ×2 (09:21→22:28)
[2021-02-12] MEDS: DIVALPROEX 500 MG TAB PO SCH ×2 (09:22→22:29)
[2021-02-12] MEDS: HEPARIN SOD (PORCINE) 5000UNITS/ML 1ML VIAL/SYRINGE SC SCH ×2 (09:22→22:30)
[2021-02-12] MEDS: ASCORBIC ACID 500 MG TAB PO SCH (09:22)
[2021-02-12] MEDS: FERROUS SULFATE 325MG TAB PO SCH (09:22)
[2021-02-12] MEDS: DIVALPROEX 250 MG TAB PO SCH ×2 (09:22→22:30)
[2021-02-12] MEDS: DOCUSATE SODIUM 100MG CAPSULE PO SCH ×2 (09:22→22:28)
[2021-02-12] MEDS: LACTIC ACID 12% LOTION 225 GM BTL TOP SCH (09:22)
[2021-02-12] MEDS: ChlorproMAZINE 100 MG TABLET PO SCH (21:00)
[2021-02-12] MEDS: amLODIPine 5 MG TAB PO SCH (22:29)
[2021-02-13 06:00] VITALS: BP 129/74
[2021-02-13] MEDS: LEVOTHYROXINE 150MCG TABLET (0.15MG) PO SCH (06:03)
[2021-02-13] MEDS: LEVOTHYROXINE 25MCG TABLET (0.025MG) PO SCH (06:03)
[2021-02-13] MEDS: chlorproMAZINE 25 MG TABLET PO SCH ×2 (09:00→13:14)
[2021-02-13] MEDS: ASCORBIC ACID 500 MG TAB PO SCH (09:16)
[2021-02-13] MEDS: FERROUS SULFATE 325MG TAB PO SCH (09:16)
[2021-02-13] MEDS: DOCUSATE SODIUM 100MG CAPSULE PO SCH ×2 (09:16→22:05)
[2021-02-13] MEDS: DIVALPROEX 500 MG TAB PO SCH ×2 (09:16→22:04)
[2021-02-13] MEDS: DIVALPROEX 250 MG TAB PO SCH ×2 (09:17→22:04)
[2021-02-13] MEDS: busPIRone 10 MG TAB PO SCH ×2 (09:18→22:05)
[2021-02-13] MEDS: OLANZapine 10 MG TAB PO SCH (09:18)
[2021-02-13] MEDS: FUROSEMIDE 20 MG TAB PO SCH (09:18)
[2021-02-13] MEDS: HEPARIN SOD (PORCINE) 5000UNITS/ML 1ML VIAL/SYRINGE SC SCH ×2 (09:18→22:04)
[2021-02-13] MEDS: LACTIC ACID 12% LOTION 225 GM BTL TOP SCH (09:19)
[2021-02-13] MEDS: amLODIPine 5 MG TAB PO SCH (22:07)
[2021-02-13] MEDS: ChlorproMAZINE 100 MG TABLET PO SCH (22:10)
[2021-02-14] MEDS: LEVOTHYROXINE 150MCG TABLET (0.15MG) PO SCH (05:38)
[2021-02-14] MEDS: LEVOTHYROXINE 25MCG TABLET (0.025MG) PO SCH (05:38)
[2021-02-14 06:00] VITALS: BP 128/84
[2021-02-14] MEDS: DIVALPROEX 500 MG TAB PO SCH ×2 (10:03→22:21)
[2021-02-14] MEDS: FERROUS SULFATE 325MG TAB PO SCH (10:03)
[2021-02-14] MEDS: DOCUSATE SODIUM 100MG CAPSULE PO SCH ×2 (10:03→22:20)
[2021-02-14] MEDS: busPIRone 10 MG TAB PO SCH ×2 (10:03→22:20)
[2021-02-14] MEDS: DIVALPROEX 250 MG TAB PO SCH ×2 (10:03→22:20)
[2021-02-14] MEDS: OLANZapine 10 MG TAB PO SCH (10:03)
[2021-02-14] MEDS: ASCORBIC ACID 500 MG TAB PO SCH (10:03)
[2021-02-14] MEDS: HEPARIN SOD (PORCINE) 5000UNITS/ML 1ML VIAL/SYRINGE SC SCH ×2 (10:04→22:22)
[2021-02-14] MEDS: chlorproMAZINE 25 MG TABLET PO SCH ×2 (10:04→14:45)
[2021-02-14] MEDS: LACTIC ACID 12% LOTION 225 GM BTL TOP SCH (10:04)
[2021-02-14] MEDS: ChlorproMAZINE 100 MG TABLET PO SCH (22:20)
[2021-02-14] MEDS: amLODIPine 5 MG TAB PO SCH (22:23)
[2021-02-15] MEDS: LEVOTHYROXINE 150MCG TABLET (0.15MG) PO SCH (05:56)
[2021-02-15] MEDS: LEVOTHYROXINE 25MCG TABLET (0.025MG) PO SCH (05:56)
[2021-02-15 06:00] VITALS: BP 116/75
[2021-02-15] MEDS: HEPARIN SOD (PORCINE) 5000UNITS/ML 1ML VIAL/SYRINGE SC SCH ×2 (07:44→20:49)
[2021-02-15] MEDS: ASCORBIC ACID 500 MG TAB PO SCH (07:45)
[2021-02-15] MEDS: OLANZapine 10 MG TAB PO SCH (07:46)
[2021-02-15] MEDS: busPIRone 10 MG TAB PO SCH ×2 (07:46→20:49)
[2021-02-15] MEDS: DOCUSATE SODIUM 100MG CAPSULE PO SCH ×2 (07:46→20:47)
[2021-02-15] MEDS: FERROUS SULFATE 325MG TAB PO SCH (07:46)
[2021-02-15] MEDS: DIVALPROEX 500 MG TAB PO SCH ×2 (07:47→20:48)
[2021-02-15] MEDS: DIVALPROEX 250 MG TAB PO SCH ×2 (07:47→20:47)
[2021-02-15] MEDS: chlorproMAZINE 25 MG TABLET PO SCH ×2 (07:47→13:56)
[2021-02-15] MEDS: LACTIC ACID 12% LOTION 225 GM BTL TOP SCH (07:48)
[2021-02-15] MEDS: ChlorproMAZINE 100 MG TABLET PO SCH (20:47)
[2021-02-15] MEDS: amLODIPine 5 MG TAB PO SCH (20:50)
[2021-02-16] MEDS: LEVOTHYROXINE 25MCG TABLET (0.025MG) PO SCH (05:31)
[2021-02-16] MEDS: LEVOTHYROXINE 150MCG TABLET (0.15MG) PO SCH (05:31)
[2021-02-16 06:00] VITALS: BP 114/74
[2021-02-16] MEDS: FERROUS SULFATE 325MG TAB PO SCH (07:51)
[2021-02-16] MEDS: HEPARIN SOD (PORCINE) 5000UNITS/ML 1ML VIAL/SYRINGE SC SCH ×2 (07:51→20:44)
[2021-02-16] MEDS: DOCUSATE SODIUM 100MG CAPSULE PO SCH ×2 (07:51→20:43)
[2021-02-16] MEDS: busPIRone 10 MG TAB PO SCH ×2 (07:51→20:44)
[2021-02-16] MEDS: ASCORBIC ACID 500 MG TAB PO SCH (07:51)
[2021-02-16] MEDS: DIVALPROEX 500 MG TAB PO SCH ×2 (07:52→20:43)
[2021-02-16] MEDS: chlorproMAZINE 25 MG TABLET PO SCH ×2 (07:52→13:54)
[2021-02-16] MEDS: DIVALPROEX 250 MG TAB PO SCH ×2 (07:52→20:43)
[2021-02-16] MEDS: OLANZapine 10 MG TAB PO SCH (07:54)
[2021-02-16] MEDS: LACTIC ACID 12% LOTION 225 GM BTL TOP SCH (07:55)
[2021-02-16] MEDS: ACETAMINOPHEN 500 MG TAB PO PRN (18:59)
[2021-02-16] MEDS: ChlorproMAZINE 100 MG TABLET PO SCH (20:44)
[2021-02-16 20:45] VITALS: BP 122/79
[2021-02-16] MEDS: amLODIPine 5 MG TAB PO SCH (20:45)
[2021-02-17 06:00] VITALS: BP 129/80
[2021-02-17] MEDS: LEVOTHYROXINE 25MCG TABLET (0.025MG) PO SCH (06:06)
[2021-02-17] MEDS: LEVOTHYROXINE 150MCG TABLET (0.15MG) PO SCH (06:06)
[2021-02-17] MEDS: busPIRone 10 MG TAB PO SCH (08:04)
[2021-02-17] MEDS: FERROUS SULFATE 325MG TAB PO SCH (08:04)
[2021-02-17] MEDS: ASCORBIC ACID 500 MG TAB PO SCH (08:04)
[2021-02-17] MEDS: OLANZapine 10 MG TAB PO SCH (08:04)
[2021-02-17] MEDS: DOCUSATE SODIUM 100MG CAPSULE PO SCH (08:04)
[2021-02-17] MEDS: chlorproMAZINE 25 MG TABLET PO SCH (08:04)
[2021-02-17] MEDS: DIVALPROEX 500 MG TAB PO SCH (08:04)
[2021-02-17] MEDS: DIVALPROEX 250 MG TAB PO SCH (08:04)
[2021-02-17] MEDS: LACTIC ACID 12% LOTION 225 GM BTL TOP SCH (08:05)
[2021-02-17] MEDS: HEPARIN SOD (PORCINE) 5000UNITS/ML 1ML VIAL/SYRINGE SC SCH (08:05)
[2021-02-17] MEDS ORDERED: LORazepam 2 MG/ML VIAL As Ordered ONE (08:41)
[2021-02-17] MEDS ORDERED: FLUBLOK(EGG FREE)(QUAD)INFLUENZA VACC 0.5ML SYRINGE 18YRS & OLDER IM ONE (09:00)
[2021-02-17 11:28] LABS: BASO # 0.1 10^3/uL (0.0-0.2); EOS # 0.1 10^3/uL (0.0-0.5); EOS % 1.5 % (0.0-3.0); HEMATOCRIT 39.4 % (36.0-47.0); HEMOGLOBIN 12.8 g/dl (12.0-15.5); LYMPH # 1.5 10^3/uL (1.5-5.0); LYMPH % 18.3 % (24.0-44.0); MEAN CORPUSCULAR HEMOGLOBIN 32.7 pg (27.0-33.0); MEAN CORPUSCULAR HGB CONC 32.5 g/dl (32.0-36.5); MEAN CORPUSCULAR VOLUME 100.8 fl (80.0-96.0); MONO % 12.1 % (2.0-8.0); NEUTROPHILS # 5.1 10^3/uL (1.5-8.5); NEUTROPHILS % 62.3 % (36.0-66.0); PLATELET COUNT, AUTOMATED 234 10^3/uL (150-450); RED BLOOD COUNT 3.91 10^6/uL (4.00-5.40); WHITE BLOOD COUNT 8.2 10^3/uL (4.0-10.0)
[2021-02-17] MEDS ORDERED: NORV5TAB PO (11:42)
[2021-02-17] MEDS ORDERED: VENTAER INH ×2 (11:42→19:19)
[2021-02-17] MEDS ORDERED: ACET-897 PO (11:42)
[2021-02-17] MEDS ORDERED: SYNT175T2 PO ×2 (11:42→19:19)
[2021-02-17 11:56] LABS: ALBUMIN 2.6 GM/DL (3.2-5.2); BILIRUBIN,TOTAL 0.3 MG/DL (0.2-1.0); CALCIUM LEVEL 10.4 MG/DL (8.5-10.1); CREATININE FOR GFR 2.64 MG/DL (0.55-1.30); GLOMERULAR FILTRATION RATE 19.7 (>51); MAGNESIUM LEVEL 2.4 MG/DL (1.8-2.4); POTASSIUM SERUM 4.4 MEQ/L (3.5-5.1); TOTAL PROTEIN 7.5 GM/DL (6.4-8.2)
[2021-02-17] MEDS ORDERED: AMLO1TAB24 PO (19:19)
[2021-02-17] MEDS ORDERED: ACET-683 PO (19:19)
== END 2021-02-17 13:02 | disposition home or self-care (01) | DRG 384 ==
LOC: M ED 16:38 → M ED INP 01-31 07:59 → ENRESERV 01-31 08:13 → M MSPAV 01-31 09:42
PROVIDERS: ADMIT Family Medicine; ATTEND Family Medicine
DX: S70.12XA Contusion of left thigh, initial encounter (principal); N18.4 Chronic kidney disease, stage 4 (severe); F25.0 Schizoaffective disorder, bipolar type; M25.552 Pain in left hip; I12.9 Hypertensive chronic kidney disease with stage 1 through stage 4 chronic kidney disease, or unspecified chronic kidney disease; E78.5 Hyperlipidemia, unspecified; E03.9 Hypothyroidism, unspecified; G43.909 Migraine, unspecified, not intractable, without status migrainosus; R26.2 Difficulty in walking, not elsewhere classified; F17.210 Nicotine dependence, cigarettes, uncomplicated; W10.9XXA Fall (on) (from) unspecified stairs and steps, initial encounter; Y92.199 Unspecified place in other specified residential institution as the place of occurrence of the external cause; Y93.89 Activity, other specified; Y99.8 Other external cause status; Z20.822 Contact with and (suspected) exposure to COVID-19; Z79.899 Other long term (current) drug therapy; Z88.5 Allergy status to narcotic agent; Z88.6 Allergy status to analgesic agent; Z88.8 Allergy status to other drugs, medicaments and biological substances

== ENCOUNTER 2021-02-17 15:57 | Inpatient (IN) | payer OTHER ==
[~2021-02-17] VITALS: Ht 170.2 cm; Wt 79.6 kg
[~2021-02-17 15:57] MED LIST changes: +ACET-897 PO; +AMMO12CR7 TOP; +CHLO200T11 PO; +DIVA250T67 PO; +DOCU100C17 PO; +VENTAER INH; +VITA1TAB35 PO; +VITA200021 PO; +VITA500T10 PO
[2021-02-17 17:19] LABS: HEMATOCRIT 35.7 % (36.0-47.0); HEMOGLOBIN 11.7 g/dl (12.0-15.5); MEAN CORPUSCULAR HEMOGLOBIN 32.8 pg (27.0-33.0); MEAN CORPUSCULAR HGB CONC 32.8 g/dl (32.0-36.5); PLATELET COUNT, AUTOMATED 211 10^3/uL (150-450); RED BLOOD COUNT 3.57 10^6/uL (4.00-5.40); WHITE BLOOD COUNT 9.2 10^3/uL (4.0-10.0)
--- NOTE | 2021-02-17 17:40 | REP ---
INDICATION: pain, fall. COMPARISON: 01/31/2021 TECHNIQUE: AP and frog-lateral views FINDINGS: There is increased bony density seen in the inter trochanteric region of the proximal femur representing a change from the prior exam. The hip joint space is symmetric, well maintained, and is unchanged. IMPRESSION: New increased bony density seen as described above suggestive of a slight impacted trabecular fracture. CT examination is recommended for complete evaluation. <Electronically signed by Sukhwinder Victoria > 02/17/21 [id number]
--- NOTE | 2021-02-17 17:41 | REP ---
INDICATION: pain, fall. COMPARISON: None. TECHNIQUE: AP supine chest FINDINGS: The technique utilized in obtaining the radiograph has magnified the cardiac silhouette and attenuated the interstitial markings. There is cardiomegaly accentuated by technique. Limited evaluation of the lung frank show no evidence of an acute patchy opacity or pleural effusion. There is a right paratracheal nodular density probably representing vascular structures. The osseous structures are within normal limits. IMPRESSION: Findings and limitations as described above. Since are no priors comparison chest CT is recommended. <Electronically signed by Sukhwinder Victoria > 02/17/21 [id number]
[2021-02-17 17:42] LABS: CALCIUM LEVEL 10.1 MG/DL (8.5-10.1); CREATININE FOR GFR 2.42 MG/DL (0.55-1.30); GLOMERULAR FILTRATION RATE 21.8 (>51); POTASSIUM SERUM 4.6 MEQ/L (3.5-5.1)
--- NOTE | 2021-02-17 17:42 | REP ---
INDICATION: pain, fall. COMPARISON: None. TECHNIQUE: AP and frog-lateral views FINDINGS: Please see the left hip report. No additional abnormalities are identified. IMPRESSION: See the left hip report. No additional abnormalities are identified. <Electronically signed by Sukhwinder Victoria > 02/17/21 [id number]
--- NOTE | 2021-02-17 17:46 | REPVR ---
PROCEDURE INFORMATION: Exam: CT Head Without Contrast Exam date and time: 02/17/2021 4:38 PM Age: 60 years old Clinical indication: Injury or trauma; Fall; Blunt trauma (contusions or hematomas) TECHNIQUE: Imaging protocol: Computed tomography of the head without contrast. Radiation optimization: All CT scans at this facility use at least one of these dose optimization techniques: automated exposure control; mA and/or kV adjustment per patient size (includes targeted exams where dose is matched to clinical indication); or iterative reconstruction. COMPARISON: No relevant prior studies available. FINDINGS: Brain: There is mild central and cortical atrophy. There is trace small vessel ischemic disease suspected. There is no intracranial hemorrhage. Cerebral ventricles: No ventriculomegaly. Paranasal sinuses: May be a trace amount of right sided maxillary mucous membrane thickening. Mastoid air cells: Visualized mastoid air cells are well aerated. Bones/joints: Unremarkable. No acute fracture. Soft tissues: Unremarkable. IMPRESSION: No acute intracranial abnormality. Electronically signed by: George Marie On 02/17/2021 17:46:04 PM
[2021-02-17 17:57] LABS: RSV AMPLIFICATION NEGATIVE (NEGATIVE)
--- NOTE | 2021-02-17 17:59 | REPVR ---
PROCEDURE INFORMATION: Exam: CT Left Lower Extremity Without Contrast, Hip Exam date and time: 02/17/2021 4:38 PM Age: 60 years old Clinical indication: Injury or trauma; Fall; Blunt trauma; Hip; Left TECHNIQUE: Imaging protocol: CT of the Left lower extremity without contrast was performed. Exam focused on the hip. Radiation optimization: All CT scans at this facility use at least one of these dose optimization techniques: automated exposure control; mA and/or kV adjustment per patient size (includes targeted exams where dose is matched to clinical indication); or iterative reconstruction. COMPARISON: CR Hip,AP,LAT to include Pelvis 01/31/2021 3:18 AM FINDINGS: Bones/joints: There is kajp-ni-[id number] arthritic changes involving posterior aspect of the femoroacetabular joint. There is no underlying degenerative cysts. There is a sclerotic line seen involving the intertrochanteric region. While this likely is not a fracture of the presence of a minimally impacted incomplete fracture cannot be excluded. Consider MRI clinically indicated. Soft tissues: Normal. Vasculature: There are vascular calcifications. Urinary bladder: There may be a distended urinary bladder. IMPRESSION: Sclerotic line seen involving the intertrochanteric region. This likely is not a fracture however, consider MRI for better evaluation for incomplete fractures. Electronically signed by: George Marie On 02/17/2021 17:59:05 PM
[2021-02-17] MEDS ORDERED: NS 500 ML IV ONE (18:00)
[2021-02-17 18:05] LABS: BASOPHILS 1 % (0-1); EOSINOPHILS 1 % (0-3); METAMYELOCYTES 5 % (0-0); MONOCYTES 13 % (0-5); MYELOCYTES 2 % (0-0); NEUTROPHILS 65 % (28-66); PLATELET ESTIMATE NORMAL (NORMAL)
[2021-02-17 18:06] LABS: LYMPHOCYTES 10 % (16-44)
[2021-02-17] MEDS ORDERED: ACETAMINOPHEN TAB 650MG DOSE (2X325MG) PO ONE (18:15)
--- NOTE | 2021-02-17 18:20 | REPVR ---
PROCEDURE INFORMATION: Exam: CT Pelvis Without Contrast Exam date and time: 02/17/2021 4:38 PM Age: 60 years old Clinical indication: Injury or trauma; Fall; Blunt trauma (contusions or hematomas); Does not apply; Pelvic region TECHNIQUE: Imaging protocol: Computed tomography images of the pelvis without contrast. Radiation optimization: All CT scans at this facility use at least one of these dose optimization techniques: automated exposure control; mA and/or kV adjustment per patient size (includes targeted exams where dose is matched to clinical indication); or iterative reconstruction. COMPARISON: CR Hip,AP,LAT to include Pelvis 01/31/2021 3:18 AM FINDINGS: Stomach and bowel: Visualized small bowel and colon are unremarkable. Appendix: No evidence of appendicitis. Intraperitoneal space: Unremarkable. No free air. No significant fluid collection. Lymph nodes: Unremarkable. No enlarged lymph nodes. Urinary bladder: Normal. No mass. Reproductive: Normal as visualized. Bones/joints: Unremarkable. No acute fracture. No dislocation. Soft tissues: Unremarkable. IMPRESSION: No acute findings. Electronically signed by: Brandon Stewart On 02/17/2021 18:19:48 PM
[2021-02-17] MEDS ORDERED: VENTAER INH (19:19)
[2021-02-17] MEDS ORDERED: AMLO1TAB24 PO (19:19)
[2021-02-17] MEDS ORDERED: ACET-683 PO (19:19)
[2021-02-17] MEDS ORDERED: SYNT175T2 PO (19:19)
[2021-02-17] MEDS ORDERED: HOME MED LIST COMPLETE! XX SCH (19:20)
[2021-02-17] MEDS ORDERED: ALBUTEROL 90 MCG/ACT 8GM HFA INHALER INH PRN (19:35)
--- NOTE | 2021-02-17 19:38 | HPEPDOC ---
[facility] Medical History & Physical Date of Admission Feb 17, 2021 Date of Service: Feb 17, 2021 Primary Care Physician: Dave Oliver Attending Physician: CHERRIE UMANZOR MD History and Physical CHIEF COMPLAINT: [fall] HISTORY OF PRESENT ILLNESS: [This is a 60 y/o female with a pmh of schizophrenia, htn, hld, ovarian ca s/p hysterectomy, hypothyroidism and distant hx of alcohol abuse who was discharged from our facility earlier today after a stay for a slow healing left hip contusion after a fall. Unfortunately, patient states that she felt as though she was too weak to walk and ended up falling on her porch outside of her home. Patient states that she was ambulating with the assistance of a cane but that she did not feel as though it was enough and her legs simply buckled out from underneath her. Patient denies syncope, pre fall dizziness, chest pain, palpitations. Patient denies striking her head. Patient tells me that she fell onto her left hip, which again was the reason she was recently admitted and discharged from our service. Fortunately, patient tells me that her pain has not significantly changed from how it was before her fall. Patient tells me that she believes that she is unable to care for herself and would like to seek custodial placement. At the time of my exam, patient denies any fevers, chills, abd pain, n/v/d/c, poor appetite, headache, vision changes, hemiparesis, slurred speech.] REVIEW OF SYSTEMS: CONSTITUTIONAL: [Denies fevers, chills]. HEENT: [Denies uri sx]. CARDIOVASCULAR: [Denies chest pain, palpitations]. RESPIRATORY: [Denies sob, wheezing]. GASTROINTESTINAL: [Denies abd pain, n/v/d/c]. GENITOURINARY: [Denies dysuria]. SKIN: [Denies rash]. MUSCULOSKELETAL: [See HPI]. NEUROLOGICAL: [Denies syncope, dizziness, paresthesias]. PSYCHIATRIC: [Hx of schizophrenia]. ENDOCRINE: [Denies hx of dm]. HEMATOLOGIC/LYMPHATIC: [Denies hx of vte]. PAST MEDICAL HISTORY: 1. [See HPI PAST SURGICAL HISTORY: 1. [Hysterectomy]. 2. [Tubal ligation]. SOCIAL HISTORY: Tobacco use:[Denies] ETOH: [Former] Illicit drug use: [Denies] FAMILY HISTORY: Father: [prostate ca ALLERGIES: Please see below. HOME MEDICATIONS: Please see below. PHYSICAL EXAMINATION: Vital Signs Date Time Temp Pulse Resp B/P (MAP) Pulse Ox O2 Delivery O2 Flow Rate FiO2 02/17/21 16:14 97.4 93 20 135/86 (102) 95 Room Air GENERAL APPEARANCE: [This is a 60 y/o female who is alert and oriented to all questioning. She does not appear to be in any acute distress]. HEENT: [No mass or lesion. EOMI. No scleral icterus. Nares patent. Oral mucosa moist]. CARDIOVASCULAR: [Regular rate, rhtyhm. No murmurs, rubs, gallops]. LUNGS: [Good air flow b/l. No wheezing, rales, rhonchi]. ABDOMEN: [Soft, nontender]. MUSCULOSKELETAL: [No joint deformity noted. Left hip ROM unable to be assessed d/t patient discomfort]. EXTREMITIES: [No pedal edema appreciated. Pulses intact. No overlying skin changes]. NEUROLOGICAL: [Sensation intact. Speech clear. Patient able to move all fours freely. A+Ox3. No focal deficits]. PSYCHIATRIC: [Depressed mood, patient tearful at point during exam. Affect appears appropriate]. LABORATORY DATA: See below. IMAGING: [CXR: FINDINGS: The technique utilized in obtaining the radiograph has magnified the cardiac silhouette and attenuated the interstitial markings. There is cardiomegaly accentuated by technique. Limited evaluation of the lung frank show no evidence of an acute patchy opacity or pleural effusion. There is a right paratracheal nodular density probably representing vascular structures. The osseous structures are within normal limits. IMPRESSION: Findings and limitations as described above. Since are no priors comparison chest CT is recommended. Left hip CT: FINDINGS: Bones/joints: There is spwm-fs-[id number] arthritic changes involving posterior aspect of the femoroacetabular joint. There is no underlying degenerative cysts. There is a sclerotic line seen involving the intertrochanteric region. While this likely is not a fracture of the presence of a minimally impacted incomplete fracture cannot be excluded. Consider MRI clinically indicated. Soft tissues: Normal. Vasculature: There are vascular calcifications. Urinary bladder: There may be a distended urinary bladder. IMPRESSION: Sclerotic line seen involving the intertrochanteric region. This likely is not a fracture however, consider MRI for better evaluation for incomplete fractures. L Femur XR: FINDINGS: Please see the left hip report. No additional abnormalities are identified. IMPRESSION: See the left hip report. No additional abnormalities are identified. Left Hip XR: FINDINGS: There is increased bony density seen in the inter trochanteric region of the proximal femur representing a change from the prior exam. The hip joint space is symmetric, well maintained, and is unchanged. IMPRESSION: New increased bony density seen as described above suggestive of a slight impacted trabecular fracture. CT examination is recommended for complete evaluation. Pelvis CT: FINDINGS: Stomach and bowel: Visualized small bowel and colon are unremarkable. Appendix: No evidence of appendicitis. Intraperitoneal space: Unremarkable. No free air. No significant fluid collection. Lymph nodes: Unremarkable. No enlarged lymph nodes. Urinary bladder: Normal. No mass. Reproductive: Normal as visualized. Bones/joints: Unremarkable. No acute fracture. No dislocation. Soft tissues: Unremarkable. IMPRESSION: No acute findings. Head CT: FINDINGS: Brain: There is mild central and cortical atrophy. There is trace small vessel ischemic disease suspected. There is no intracranial hemorrhage. Cerebral ventricles: No ventriculomegaly. Paranasal sinuses: May be a trace amount of right sided maxillary mucous membrane thickening. Mastoid air cells: Visualized mastoid air cells are well aerated. Bones/joints: Unremarkable. No acute fracture. Soft tissues: Unremarkable. IMPRESSION: No acute intracranial abnormality. ] MICROBIOLOGY: Please see below. ASSESSMENT: [This is a 60 y/o female with a pmh of schizophrenia, htn, hld, ovarian ca s/p hysterectomy, hypothyroidism and distant hx of alcohol abuse who was discharged from our facility earlier today after a stay for a slow healing left hip contusion after a fall. Unfortunately, patient states that she felt as though she was too weak to walk and ended up falling on her porch outside of her home.]. . PLAN: 1. [Inability to ambulate - 2/2 left hip pain, deconditioning - Extensive imaging performed in the ED not indicative of any large bony abnormality. CT of the hip notable for findings that are likely not fracture, however cannot exclude one - Day team can consider MRI should patient not improve - Tylenol for mild/mod pain, oxy for severe - Ice as tolerated - PT/OT consulted - Patient expressed that she no longer believes that she can take care of herself d/t her weakness and hip pain, and does not believe her current living situation is safe. Patient expressed interest in custodial placement - Social service consult placed - Admit to med surg for pain control and pt/ot 2. Schizophrenia - continue at home thorazine, zyprexa, depakote, buspar 3. HTN - continue amlodipine 4. Hypothyroidism - continue continue synthroid DVT prophylaxis - teds and scds]. Vital Signs Vital Signs Date Time Temp Pulse Resp B/P (MAP) Pulse Ox O2 Delivery O2 Flow Rate FiO2 02/17/21 16:14 97.4 93 20 135/86 (102) 95 Room Air Laboratory Data Labs 24H Laboratory Tests 2 02/17/21 16:47: Immature Granulocyte % (Auto) , Neutrophils (%) (Auto) , Nucleated Red Blood Cells % (auto) 0.0, Neutrophils 65, Band Neutrophils 3, Lymphocytes (Manual) 10L, Monocytes (Manual) 13H, Eosinophils (Manual) 1, Basophils (Manual) 1, Metamyelocytes 5H, Myelocytes 2H, Atypical Lymphocytes , Nucleated Red Blood Cells , Platelet Estimate NORMAL, Anion Gap 9, Glomerular Filtration Rate 21.8L, Calcium Level 10.1, Coronavirus (COVID-19)(PCR) NEGATIVE, Influenza Type A (RT- PCR) NEGATIVE, Influenza Type B (RT-PCR) NEGATIVE, Respiratory Syncytial Virus (PCR) NEGATIVE CBC/BMP Laboratory Tests 02/17/21 16:47 Home Medications Scheduled Amlodipine Besylate (Amlodipine Besylate) 5 Mg Tablet, 5 MG PO QHS Ammonium Lactate (Ammonium Lactate) 12% Cream..g., 1 DOSE TOP DAILY APPLY TO DRY FEET AFTER SHOWER Ascorbic Acid (Vitamin C) 500 Mg Tablet, 500 MG PO DAILY Buspirone HCl (Buspirone HCl) 10 Mg Tablet, 10 MG PO BID DINNERTIME AND BEDTIME Chlorpromazine HCl (Chlorpromazine HCl) 50 Mg Tablet, 50 MG PO BID MORNING AND 1400 Chlorpromazine HCl (Chlorpromazine HCl) 200 Mg Tablet, 200 MG PO QHS Cholecalciferol (Vitamin D3) (Vitamin D3) 50 Mcg Capsule, 50 MCG PO DAILY Cyanocobalamin (Vitamin B-12) (Vitamin B-12) 100 Mcg Tablet, 100 MCG PO DAILY Divalproex Sodium (Depakote) 500 Mg Tablet.dr, 500 MG PO BID TAKES WITH 250MG FOR 750MG TOTAL Divalproex Sodium (Divalproex Sodium) 250 Mg Tablet.dr, 250 MG PO BID TAKES WITH 500MG FOR 750MG TOTAL Docusate Sodium (Docusate Sodium) 100 Mg Capsule, 100 MG PO BID Ferrous Sulfate (Ferrous Sulfate) 325 Mg Tablet.dr, 325 MG PO DAILY Levothyroxine Sodium (Synthroid) 175 Mcg Tablet, 175 MCG PO DAILY Olanzapine (Zyprexa) 10 Mg Tablet, 10 MG PO DAILY Scheduled PRN Acetaminophen (Acetaminophen) 500 Mg Tablet, 1,000 MG PO Q6H PRN for PAIN LEVEL 1-4 Albuterol Sulfate (Ventolin Hfa) 18 Gm Hfa.aer.ad, 2 PUFFS INH QID PRN for SOB/WHEEZING Allergies Coded Allergies: aspirin (Verified Allergy, Unknown, 07/26/20) benztropine (Verified Allergy, Unknown, 07/26/20) codeine (Verified Allergy, Unknown, 07/26/20) haloperidol (Verified Allergy, Unknown, 07/26/20) zolpidem (Verified Allergy, Unknown, 07/26/20) A-FIB/CHADSVASC A-FIB History Current/History of A-Fib/PAF?: No FIONA GULILAUME Feb 17, 2021 19:38 CHERRIE UMANZOR MD Feb 20, 2021 03:27
[2021-02-17] MEDS: busPIRone 10 MG TAB PO SCH (23:25)
[2021-02-17] MEDS: DOCUSATE SODIUM 100MG CAPSULE PO SCH (23:25)
[2021-02-17] MEDS: DIVALPROEX 250 MG TAB PO SCH (23:25)
[2021-02-17] MEDS: amLODIPine 5 MG TAB PO SCH (23:25)
[2021-02-17] MEDS: DIVALPROEX 500 MG TAB PO SCH (23:25)
[2021-02-18] VITALS (14 sets, daily range): BP systolic 108–161; BP diastolic 61–97
[2021-02-18] MEDS: ChlorproMAZINE 100 MG TABLET PO SCH ×2 (04:05→20:20)
[2021-02-18] MEDS: ACETAMINOPHEN 500 MG TAB PO PRN (04:06)
[2021-02-18] MEDS: LEVOTHYROXINE 75MCG TABLET (0.075MG) PO SCH ×2 (05:16→23:43)
[2021-02-18] MEDS: LEVOTHYROXINE 100MCG TABLET (0.1MG) PO SCH ×2 (05:16→23:43)
--- NOTE | 2021-02-18 07:12 | REPVR ---
PROCEDURE INFORMATION: Exam: CT Head Without Contrast Exam date and time: 02/18/2021 7:04 AM Age: 60 years old Clinical indication: Other: Stroke, symptoms unspecified TECHNIQUE: Imaging protocol: Computed tomography of the head without contrast. Radiation optimization: All CT scans at this facility use at least one of these dose optimization techniques: automated exposure control; mA and/or kV adjustment per patient size (includes targeted exams where dose is matched to clinical indication); or iterative reconstruction. Other technique: STROKE PROTOCOL was implemented. COMPARISON: CT Head without contrast 02/17/2021 5:01 PM FINDINGS: There are no intra-or extra-axial hemorrhages or fluid collections. There is no mass effect or midline shift. Ventricles are symmetrical and nondilated for age. There are no focal parenchymal abnormalities. Atherosclerotic changes within intracranial arteries. No calvarial fractures. ASPECTS (Gill Stroke Program Early CT Score) is 10 IMPRESSION: No acute intracranial process. No intracranial hemorrhage. If clinical concern for acute infarction, MRI with diffusion weighted sequences or intracranial CTA should be considered. Electronically signed by: Roge Florez On 02/18/2021 07:11:55 AM
--- NOTE | 2021-02-18 08:11 | IPNPDOC ---
Text Note Date of Service The patient was seen on 02/18/21. NOTE Subjective: Patient is a 60-year-old female who presented to the hospital last night after being discharged and falling at home. Patient is still having left hip pain. Around 6:50 AM on 02/18/2021 a rapid assessment team was called due to the patient having her eyes rolled back in her head and falling back into the bed. Nursing was present with the patient when this happened before calling the rapid assessment team. Patient was having slurred speech at the time and did have some leg weakness and some increased facial droop from her baseline. Patient was initially attended by night provider who started the process however, I arrived shortly afterwards since I was going to be the patient's attending physician throughout the day. I took over after the possibility of a CVA was initially thought and a head CT has been ordered. Upon the time of my examination, patient had an NIH stroke scale of 2. Patient went down to CT scan where she had a CT of her head done. Patient was transferred to the intensive care unit as the possibility of TPA was discussed however, the patient's NIH stroke scale came to 0 and the patient returned back to her baseline that she wa s overnight according to nursing around 7:15 AM. When I walked into the room, patient immediately recognized me as I took care of her during her early parts of her previous admission. Patient began talking to me about what happened that led her back into the hospital. Patient is asking about not being discharged too early and is wondering if she needs to go to a half-way. Patient stated that she felt like she was going to fall which led to her falling back but around 7:20 AM, the patient began to feel back to her baseline. Patient was feeling well when I left the bedside at about 7:25 AM. Review of systems: General: Patient denies fevers HEENT: Patient denies headaches Cardiovascular: Patient denies chest pain Respiratory: Patient denies shortness of breath, cough GI: Patient denies abdominal pain, nausea, vomiting, diarrhea : Patient denies increased frequency or pain with urination Extremities: Patient reports pain in her left hip Neurological: Patient denies numbness or tingling in legs Physical exam: Vitals: See below General: Alert and oriented female patient who was sitting in bed when I walked in. Patient not appear to be in any acute distress. HEENT: Normocephalic, atraumatic, moist mucous membranes. Neck: No lymphadenopathy or thyromegaly Cardiac: Regular rate and rhythm, no murmurs, normal S1, normal S2 Pulm: Clear to auscultation bilaterally. No wheezes, rhonchi, rales Abd: Nondistended, nontender to palpation, normal bowel sounds Ext: No edema bilateral lower extremities, pain to palpation of the left hip Neuro: Initially, patient had left-sided facial droop with slurred speech and some weakness in raising her right leg off the bed. Patient had 5/5 strength in her upper extremities. Patient had equal eyebrow raise and was able to shut her eyes and follow commands. Patient's initial NIH stroke scale was 2. 30 minutes later when I reexamined the patient in the intensive care unit, patient's slurred speech was back to her normal speech, patient did not have any abnormal facial droop, cranial nerves III through XII intact bilaterally, patient was able to read the pamphlet out loud that I gave her, patient had 5/5 strength in her upper extremities and was back to her baseline 4/5 strength in her lower extremities. Rbtwbg-iq-ewic and venj-iq-tvld testing was within normal limits and patient reported equal sensation in all 4 extremities bilaterally. Patient's NIH stroke scale was 0 at this time Labs: See below Imaging: Head CT performed without contrast on 02/18/2021 was reported to show no acute intracranial process. No intracranial hemorrhage. If clinical concern for acute infarction, MRI with diffusion-weighted sequences or intracranial CTA should be considered. MRI of the brain performed without contrast on 02/18/2021 was reported to show there are occasional nonspecific foci of high signal abnormality in the canales radiata and centrum semiovale. These are best seen on FLAIR images. These foci may represent areas of gliosis, demyelination, and/or chronic ischemic change. No acute infarct is identified. There is moderate cerebral atrophy. MRA of the brain performed without contrast on 02/18/2021 was reported to show the basilar artery small felt to be due to origin of both posterior cerebral arteries. There is no significant arterial stenosis or occlusion. MRI of the left hip performed without contrast on 02/18/2021 was reported to show nondisplaced proximal left femur moral fracture described as a curvilinear low signal band seen in the intertrochanteric left proximal femur on all sequences. There is significant T2 hyper signal seen on both sides of that low signal made extending into the femoral neck and proximal femoral diaphysis. Assessment/plan: 60-year-old female who initially presented to the hospital after falling again at home with left hip pain unable to ambulate who had a rapid assessment team called on her earlier this morning due to possible CVA 1. CVA/TIA. Patient initially had neuro deficits including facial droop, slurred speech, and weakness however, these resolved within half an hour. CT the head did not show any intracranial abnormality or hemorrhage. I did discuss the case with Dr. Parry of neurology who did recommend getting MRI and MRA of the brain with carotid ultrasound. Now that the patient's neurological deficits are gone she is back to her baseline, she is not a candidate for TPA. Patient will continue with the treatment for her leg pain. We will continue to monitor the patient closely and patient has been placed on telemetry. EKG has been done. Echocardiogram will also be ordered. 2. Inability to ambulate secondary to left hip pain. CT of the hip was notable for finding that was not likely a fracture however they cannot exclude 1. MRI of the left hip can be ordered in order to rule out fracture definitively. Continue work with PT and OT. Patient expressed that she believes she is no longer to care for self due to the weakness in her hip pain. Patient does not believe her current living situation is safe and expressed interest in half-way placement. product manager financial services consult has been placed. 3. Left hip fracture. Patient has a left hip fracture which is most likely the cause of the patient's left hip pain. I am unsure if this is been there for a while or if this which is new due to the patient's most recent fall at home. Patient did appear to be in more pain when getting up to the chair and back than she was during her last admission. Patient has a history of chronic kidney disease stage IV and does see nephrology but does not have any other comorbidities. Patient has a class II risk based on the RCRI calculator due to her preoperative creatinine being greater than 2 due to her chronic kidney dis ease stage IV. Patient is otherwise optimized for surgery. Patient's last oral intake was at 10:30 AM this morning when she ate breakfast and has been made n.p.o. 4. Schizophrenia. Continue home medications. 5. Hypertension continue home amlodipine. 6. Chronic kidney disease stage IV. Continue to monitor the patient's BUN and creatinine and avoid nephrotoxic agents. 7. Hypothyroidism. Continue Synthroid DVT Prophylaxis: Teds and sequentials Disposition: Pending clinical improvement VSEsperanza, I+O VSEsperanza, I+O Laboratory Tests 02/17/21 16:47 Vital Signs Date Time Temp Pulse Resp B/P (MAP) Pulse Ox O2 Delivery O2 Flow Rate FiO2 02/18/21 07:42 98.2 98 20 143/80 96 Room Air KALPESH RAMIREZ DO Feb 18, 2021 08:11
[2021-02-18 08:26] LABS: BASO # 0.1 10^3/uL (0.0-0.2); BASO % 0.9 % (0.0-1.0); EOS # 0.2 10^3/uL (0.0-0.5); EOS % 2.3 % (0.0-3.0); LYMPH # 1.3 10^3/uL (1.5-5.0); LYMPH % 16.8 % (24.0-44.0); MEAN CORPUSCULAR HEMOGLOBIN 33.7 pg (27.0-33.0); MEAN CORPUSCULAR HGB CONC 33.3 g/dl (32.0-36.5); MEAN CORPUSCULAR VOLUME 101.1 fl (80.0-96.0); MONO # 1.3 10^3/uL (0.0-0.8); MONO % 17.8 % (2.0-8.0); NEUTROPHILS # 4.3 10^3/uL (1.5-8.5); NEUTROPHILS % 57.7 % (36.0-66.0); PLATELET COUNT, AUTOMATED 206 10^3/uL (150-450); RED BLOOD COUNT 3.56 10^6/uL (4.00-5.40); WHITE BLOOD COUNT 7.5 10^3/uL (4.0-10.0)
[2021-02-18 08:37] LABS: INR 0.96; PROTHROMBIN TIME 13.2 SECONDS (12.7-14.5)
[2021-02-18 08:58] LABS: ALBUMIN 2.3 GM/DL (3.2-5.2); ALT/SGPT 13 U/L (12-78); BILIRUBIN,TOTAL 0.4 MG/DL (0.2-1.0); BLOOD UREA NITROGEN 56 MG/DL (7-18); CALCIUM LEVEL 10.3 MG/DL (8.5-10.1); CARBON DIOXIDE LEVEL 18 MEQ/L (21-32); CHLORIDE LEVEL 117 MEQ/L (98-107); CREATININE FOR GFR 2.16 MG/DL (0.55-1.30); GLOMERULAR FILTRATION RATE 24.8 (>51); GLUCOSE, FASTING 86 MG/DL (70-100); MAGNESIUM LEVEL 2.4 MG/DL (1.8-2.4); POTASSIUM SERUM 4.3 MEQ/L (3.5-5.1); SODIUM LEVEL 142 MEQ/L (136-145); TOTAL PROTEIN 6.9 GM/DL (6.4-8.2); TROPONIN I < 0.02 NG/ML (< 0.10)
[2021-02-18] MEDS: chlorproMAZINE 25 MG TABLET PO SCH ×2 (10:02→15:11)
[2021-02-18] MEDS: OLANZapine 10 MG TAB PO SCH (10:02)
[2021-02-18] MEDS: DOCUSATE SODIUM 100MG CAPSULE PO SCH ×2 (10:02→20:20)
[2021-02-18] MEDS: FERROUS SULFATE 325MG TAB PO SCH (10:02)
[2021-02-18] MEDS: LACTIC ACID 12% LOTION 225 GM BTL TOP SCH (10:02)
[2021-02-18] MEDS: ASCORBIC ACID 500 MG TAB PO SCH (10:02)
[2021-02-18] MEDS: DIVALPROEX 500 MG TAB PO SCH ×2 (10:14→20:20)
[2021-02-18] MEDS: DIVALPROEX 250 MG TAB PO SCH ×2 (10:14→20:20)
--- NOTE | 2021-02-18 10:48 | REP ---
INDICATION: left hip pain, possible fracture seen on CT. COMPARISON: Plain film examination 02/17/2021 at 5:[address] obtained same day TECHNIQUE: Pre and post contrast 3T MRI of the left hip was performed utilizing various sequences. Gadolinium utilized: FINDINGS: There is a curvilinear low signal band seen in the inter trochanteric left proximal femur on all sequences. There is significant T2 hyper signal seen on both sides of that low signal band extending into the femoral neck and proximal femoral diaphysis. Patchy T2 hyper signal is seen within all soft tissues surrounding the osseous abnormality. There is fluid in the trochanteric tendono bursa. There is a slight left hip joint effusion. IMPRESSION: Nondisplaced proximal left femoral fracture as described above with soft tissue edema and fluid. <Electronically signed by Sukhwinder Victoria > 02/18/21 1049
--- NOTE | 2021-02-18 11:20 | REPVR ---
PROCEDURE INFORMATION: Exam: MR Head Without Contrast Exam date and time: 02/18/2021 9:23 AM Age: 60 years old Clinical indication: Weakness and slurred speech TECHNIQUE: Imaging protocol: MR of the head without contrast. COMPARISON: CT Head without contrast 02/18/2021 7:01 AM FINDINGS: Brain: There are occasional nonspecific foci of high signal abnormality in the canales radiata and centrum semiovale. These are best seen on the flair images. These foci may represent areas of gliosis, demyelination, and/or chronic ischemic change. There is moderate cerebral atrophy. Cerebral ventricles: Normal. No ventriculomegaly. Bones/joints: Unremarkable. Paranasal sinuses: Normal as visualized. No acute sinusitis. Mastoid air cells: Normal as visualized. No mastoid effusion. Orbital cavity: Unremarkable. Soft tissues: Unremarkable. IMPRESSION: 1. There are occasional nonspecific foci of high signal abnormality in the canales radiata and centrum semiovale. These are best seen on the flair images. These foci may represent areas of gliosis, demyelination, and/or chronic ischemic change. No acute infarct is identified. 2. There is moderate cerebral atrophy. Electronically signed by: Gilbert Barbosa On 02/18/2021 11:19:44 AM
--- NOTE | 2021-02-18 11:23 | REPVR ---
PROCEDURE INFORMATION: Exam: MRA Head Without Contrast; Arteriography Exam date and time: 02/18/2021 9:23 AM Age: 60 years old Clinical indication: Speech disturbance and weakness. TECHNIQUE: Imaging protocol: Magnetic resonance angiography head without contrast. Exam focused on the arteries. COMPARISON: CT Head without contrast 02/18/2021 7:01 AM FINDINGS: ANTERIOR CIRCULATION: Right internal carotid artery: Intracranial segment is patent with no significant stenosis. No aneurysm. Right middle cerebral artery: No occlusion or significant stenosis. No aneurysm. Right anterior cerebral artery: No occlusion or significant stenosis. No aneurysm. Left internal carotid artery: Intracranial segment is patent with no significant stenosis. No aneurysm. Left middle cerebral artery: No occlusion or significant stenosis. No aneurysm. Left anterior cerebral artery: No occlusion or significant stenosis. No aneurysm. POSTERIOR CIRCULATION: Right vertebral artery: The right vertebral artery terminates in a PICA. Left vertebral artery: No occlusion or significant stenosis. No aneurysm. Basilar artery: No occlusion or significant stenosis. No aneurysm. Right posterior cerebral artery: No occlusion or significant stenosis. No aneurysm. Left posterior cerebral artery: No occlusion or significant stenosis. No aneurysm. Other vasculature: The basilar artery is small felt to be due to origins of both posterior cerebral arteries. IMPRESSION: The basilar artery is small felt to be due to origins of both posterior cerebral arteries. There is no significant arterial stenosis or occlusion. Electronically signed by: Gilbert Barbosa On 02/18/2021 11:22:35 AM
--- NOTE | 2021-02-18 11:23 | ECGEPIP ---
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
--- NOTE | 2021-02-18 13:17 | CR.PDOC ---
General Date of Consultation: Feb 18, 2021 Consultation CHIEF COMPLAINT: 60 y/o female presents to our ED after a fall - MRI findings of occult hip fracture, left History from patient and Admission H&P HISTORY OF PRESENT ILLNESS: 60 y/o f with a pmh of schizophrenia, htn, hld, ovarian ca s/p hysterectomy, hypothyroidism and distant hx of alcohol abuse who was discharged from our facility earlier this week after a stay for a slow healing left hip contusion after a fall. Unfortunately, patient states that she felt as though she was too weak to walk and ended up falling on her porch outside of her home. Patient states that she was ambulating with the assistance of a cane but that she did not feel as though it was enough and her legs simply buckled out from underneath her. Patient denies syncope, pre fall dizziness, chest pain, palpitations. Patient denies striking her head. Patient tells me that she fell onto her left hip, which again was the reason she was recently admitted and discharged from our service. Patient reports that her pain has significantly increased today. Patient had an unresponsive episode this am and a rapid response call was placed. Imaging and other evaluations do not show any concerns for stroke or otherwise and the patient has been cleared for surgery by Hospitalist service. PAST MEDICAL HISTORY: 1. See HPI PAST SURGICAL HISTORY: 1. Hysterectomy. 2. Tubal ligation. SOCIAL HISTORY: Tobacco use:Denies ETOH: Former Illicit drug use: Denies FAMILY HISTORY: Father: prostate ca ALLERGIES: Please see below. REVIEW OF SYSTEMS: As per HPI HOME MEDICATIONS: Please see below. PHYSICAL EXAMINATION: VITAL SIGNS: Please see below. GENERAL APPEARANCE: Pt lying in bed NAD, comfortable CARDIOVASCULAR:palpable PT pulse MUSCULOSKELETAL:point tender over L GT. ROM not performed due to undisplaced f racture on MRI NEUROLOGICAL: Grossly NV intact to bilateral feet to all distribributions; moving feet and ankles PSYCHIATRIC: Pt had to be redirected frequently, but otherwise affect appropriate LABORATORY DATA: See below. ASSESSMENT/PLAN: 1. Left hip undisplaced fracture on MRI, occult. Discussed option of ORIF with pt. Pt signed consent for ORIF L hip after discussion of risks and benefits, outlined in consent. Consented for blood transfusion, PRN. Communicated to OR and nursing staff. Plan for Surgery ORIF 0800 Tomorrow. NPO at midnight. NWB L leg. Vital Signs/I&O Vital Signs Date Time Temp Pulse Resp B/P (MAP) Pulse Ox O2 Delivery O2 Flow Rate FiO2 02/18/21 11:00 91 138/76 (96) 98 Room Air 02/18/21 08:00 97.9 20 Laboratory Data Labs 24H Laboratory Tests 2 02/17/21 16:47: Immature Granulocyte % (Auto) , Neutrophils (%) (Auto) , Nucleated Red Blood Cells % (auto) 0.0, Neutrophils 65, Band Neutrophils 3, Lymphocytes (Manual) 10L, Monocytes (Manual) 13H, Eosinophils (Manual) 1, Basophils (Manual) 1, Metamyelocytes 5H, Myelocytes 2H, Atypical Lymphocytes , Nucleated Red Blood Cells , Platelet Estimate NORMAL, Anion Gap 9, Glomerular Filtration Rate 21.8L, Calcium Level 10.1, Coronavirus (COVID-19)(PCR) NEGATIVE, Influenza Type A (RT- PCR) NEGATIVE, Influenza Type B (RT-PCR) NEGATIVE, Respiratory Syncytial Virus (PCR) NEGATIVE 02/18/21 06:52: Bedside Glucose (Misc Panel) 84 02/18/21 08:02: Immature Granulocyte % (Auto) 4.5H, Neutrophils (%) (Auto) 57.7, Nucleated Red Blood Cells % (auto) 0.0, Anion Gap 7L, Glomerular Filtration Rate 24.8L, Calcium Level 10.3H, Lymphocytes (%) (Auto) 16.8L, Monocytes (%) (Auto) 17.8H, Eosinophils (%) (Auto) 2.3, Basophils (%) (Auto) 0.9, Neutrophils # (Auto) 4.3, Lymphocytes # (Auto) 1.3L, Monocytes # (Auto) 1.3H, Eosinophils # (Auto) 0.2, Basophils # (Auto) 0.1, Prothrombin Time 13.2, Prothromb Time International Ratio 0.96, Magnesium Level 2.4, Total Bilirubin 0.4, Aspartate Amino Transf (AST/SGOT) 10, Alanine Aminotransferase (ALT/SGPT) 13, Alkaline Phosphatase 125H , Troponin I < 0.02, Total Protein 6.9, Albumin 2.3L, Albumin/Globulin Ratio 0.5L CBC/BMP Laboratory Tests 02/17/21 16:47 02/18/21 08:02 Allergies Coded Allergies: aspirin (Verified Allergy, Unknown, 07/26/20) benztropine (Verified Allergy, Unknown, 07/26/20) codeine (Verified Allergy, Unknown, 07/26/20) haloperidol (Verified Allergy, Unknown, 07/26/20) zolpidem (Verified Allergy, Unknown, 07/26/20) Home Medications Scheduled Amlodipine Besylate (Amlodipine Besylate) 5 Mg Tablet, 5 MG PO QHS, (Reported) Ammonium Lactate (Ammonium Lactate) 12% Cream..g., 1 DOSE TOP DAILY, (Reported) APPLY TO DRY FEET AFTER SHOWER Ascorbic Acid (Vitamin C) 500 Mg Tablet, 500 MG PO DAILY, (Reported) Buspirone HCl (Buspirone HCl) 10 Mg Tablet, 10 MG PO BID, (Reported) DINNERTIME AND BEDTIME Chlorpromazine HCl (Chlorpromazine HCl) 50 Mg Tablet, 50 MG PO BID, (Reported) MORNING AND 1400 Chlorpromazine HCl (Chlorpromazine HCl) 200 Mg Tablet, 200 MG PO QHS, (Reported) Cholecalciferol (Vitamin D3) (Vitamin D3) 50 Mcg Capsule, 50 MCG PO DAILY, (Reported) Cyanocobalamin (Vitamin B-12) (Vitamin B-12) 100 Mcg Tablet, 100 MCG PO DAILY, (Reported) Divalproex Sodium (Depakote) 500 Mg Tablet.dr, 500 MG PO BID, (Reported) TAKES WITH 250MG FOR 750MG TOTAL Divalproex Sodium (Divalproex Sodium) 250 Mg Tablet.dr, 250 MG PO BID, (Reported) TAKES WITH 500MG FOR 750MG TOTAL Docusate Sodium (Docusate Sodium) 100 Mg Capsule, 100 MG PO BID, (Reported) Ferrous Sulfate (Ferrous Sulfate) 325 Mg Tablet.dr, 325 MG PO DAILY, (Reported) Levothyroxine Sodium (Synthroid) 175 Mcg Tablet, 175 MCG PO DAILY, (Reported) Olanzapine (Zyprexa) 10 Mg Tablet, 10 MG PO DAILY, (Reported) Scheduled PRN Acetaminophen (Acetaminophen) 500 Mg Tablet, 1,000 MG PO Q6H PRN for PAIN LEVEL 1-4, (Reported) Albuterol Sulfate (Ventolin Hfa) 18 Gm Hfa.aer.ad, 2 PUFFS INH QID PRN for SOB/WHEEZING, (Reported) STEPHEN KRUSE MD Feb 18, 2021 13:17
--- NOTE | 2021-02-18 16:47 | REP ---
INDICATION: Assess stenosis TECHNIQUE: Carotid ultrasonography was performed bilaterally FINDINGS: Right: CCA systolic: 90 centimeters/second CCA diastolic: 10.3 centimeters/second ICA systolic: 55.5 centimeters/second ICA diastolic: 15.9 centimeters/second ICA CCA ratio: 0.62 Left: CCA systolic: 61.1 centimeters/second CCA diastolic: 8.8 centimeters/second ICA systolic: 52.2 centimeters/second ICA diastolic: 16.7 centimeters/second ICA CCA ratio: 0.85 Vertebral artery: Right: Antegrade flow left: Antegrade flow Mild noncalcified and calcified plaque formation is seen bilaterally IMPRESSION: According to the SRU criteria there is less than 50% stenosis of the internal carotid artery bilaterally. This is secondary to a mild amount of calcified and noncalcified atheromatous plaque formation. The transit worker identified a large thyroid. This needs clinical evaluation. <Electronically signed by Sukhwinder Victoria > 02/18/21 [id number]
[2021-02-18] MEDS: busPIRone 10 MG TAB PO SCH ×2 (18:11→20:20)
[2021-02-18] MEDS: amLODIPine 5 MG TAB PO SCH (20:20)
[2021-02-18] MEDS: oxyCODONE 5MG TAB PO PRN (20:22)
[2021-02-19] VITALS (9 sets, daily range): BP systolic 110–161; BP diastolic 65–105; O2SAT 97
[2021-02-19] MEDS ORDERED: BUPIVACAINE/EPIN 0.5% 30 ML VIAL As Ordered ONE (05:21)
[2021-02-19] MEDS ORDERED: TRANEXAMIC ACID 100 MG/ML 10ML VIAL As Ordered ONE (05:21)
[2021-02-19] MEDS ORDERED: ceFAZolin 1GM VIAL (J0690 PER 500MG) As Ordered ONE (09:43)
[2021-02-19] MEDS ORDERED: KETAMINE HCL 200 MG/20 ML VIAL As Ordered ONE (09:53)
[2021-02-19] MEDS ORDERED: propofoL 200 MG/20 ML VIAL As Ordered ONE (09:54)
[2021-02-19] MEDS ORDERED: LIDOCAINE 2% 100MG/5ML SDV (FOR ANES.) As Ordered ONE (09:54)
[2021-02-19] MEDS ORDERED: fentaNYL 100 MCG/2 ML INJECTION (J3010) As Ordered ONE (09:54)
[2021-02-19] MEDS ORDERED: ONDANSETRON 4MG/2ML VIAL As Ordered ONE (09:54)
[2021-02-19] MEDS ORDERED: MIDAZOLAM INJ 2MG/2ML VIAL (J2250 PER 1MG) As Ordered ONE (09:54)
[2021-02-19] MEDS ORDERED: PHENYLephrine 500MCG 5ML (100MCG/ML) SYRINGE As Ordered ONE ×2 (10:39→10:41)
--- NOTE | 2021-02-19 10:47 | ECHO ---
ECHOCARDIOGRAM DATE OF PROCEDURE: 02/18/2021 Age: Gender: Female Height: 170 cm Weight: 80 kg REFERRING PHYSICIAN: Gilbert Valles D.O. INDICATION: Transient ischemic attack (TIA). MEASUREMENTS: LV 3.8 cm IVS 1.0 cm LVPW 0.9 cm Aorta 3.4 cm LA 4.6 cm IVC 2.2 cm Mitral E wave velocity 50 A wave 83 E prime septal 7.0 E prime lateral 6.6 FINDINGS: This study is of acceptable technical quality. Patient is in sinus rhythm. Left ventricle is of normal size and systolic function with estimated ejection fraction (EF) of around 60-65%. I do not appreciate any segmental wall motion abnormalities. Right ventricle also appears of normal size and systolic function. Left atrium is moderately enlarged. Right atrium was poorly visualized. Aortic valve is mildly sclerotic, but it is tricuspid and mobility appears preserved. Mitral valve appears normal. Tricuspid valve also appears normal. The limited views of pulmonic valve also appear normal. No pericardial effusion is noted. Inferior vena cava is dilated, but collapses with inspiration, indicative of likely mildly elevated central venous pressure. Aortic root is normal. Aortic arch was not well visualized. Abdominal aorta also appears normal. Doppler interrogation of the aortic valve reveals no stenosis or insufficiency. Same applies for mitral and tricuspid valves. Mitral inflow pattern and tissue Doppler imaging of mitral annulus reveals grade 1 diastolic disfunction. Injection of agitated saline via peripheral vein reveals no evidence of left to right or right to left shunt. CONCLUSIONS: 1. This study is of acceptable technical quality. Underlying sinus rhythm. 2. Normal left ventricular (LV) size with normal LV systolic function. Grade 1 diastolic dysfunction. 3. No significant valvular disease. 4. Probably mildly elevated central venous pressure. 5. Unable to estimate pulmonary artery pressure. 6. Negative "bubble study". MTDD
[2021-02-19] MEDS ORDERED: PHENYLEPHRINE 10MG/ML 1ML VIAL (J2370 PER 1) As Ordered ONE (10:54)
--- NOTE | 2021-02-19 11:03 | IPNPDOC ---
Text Note Date of Service The patient was seen on 02/19/21. NOTE Subjective: Patient is a 60-year-old female present to the hospital [facility] to go after being discharged and falling at home. Patient was found to have a left hip fracture. Patient had a rapid assessment called on her yesterday due to possible TIA or syncopal event. Patient was back to her baseline mentation after about 20 to 30 minutes. Patient had no other acute episodes overnight and was doing otherwise well. Patient is getting ready to go down to the operating room to fix her hip fracture. Patient denies any weakness or numbness and states that the only thing that is bothering her is her left hip. Review of systems: General: Patient denies fevers HEENT: Patient denies headaches Cardiovascular: Patient denies chest pain Respiratory: Patient denies shortness of breath, cough GI: Patient denies abdominal pain, nausea, vomiting, diarrhea : Patient denies increased frequency or pain with urination Extremities: Patient reports pain in her left hip as above Neurological: Patient denies numbness or tingling in legs Physical exam: Vitals: See below General: Alert and oriented female patient who was sitting up in bed when I walked in the room. Patient not appear to be in any acute distress. HEENT: Normocephalic, atraumatic, moist mucous membranes. Neck: No lymphadenopathy or thyromegaly Cardiac: Regular rate and rhythm, no murmurs, normal S1, normal S2 Pulm: Clear to auscultation bilaterally. No wheezes, rhonchi, rales Abd: Nondistended, nontender to palpation, normal bowel sounds Ext: No edema bilateral lower extremities Neuro: Patient had equal strength in upper and lower extremities bilaterally. Patient reported sensation to light touch in upper and lower extremities bilaterally. Cranial nerves III through XII intact bilaterally Labs: See below Imaging: Carotid ultrasound performed on 02/18/2021 was reported to show according to the SRU criteria there is less than 50% stenosis in the internal carotid artery bilaterally. This is secondary to a mild amount of calcified noncalcified atheromatous plaque formation. The sonograph are identified a large thyroid this needs clinical evaluation. Echocardiogram performed on 02/18/2021 was reported to show studies acceptable technical quality. Underlying sinus rhythm. Normal left ventricular size with normal left ventricular systolic function. Grade 1 diastolic dysfunction. No significant valvular disease. Probably mildly elevated central venous pressure. Unable to estimate pulmonary artery pressure Assessment/plan: 60-year-old female who initially presented to the hospital after falling at home with left hip pain unable to ambulate with a rapid assessment called on her earlier due to possible CVA which was ruled out who was found to have hip fracture 1. TIA/syncope. Patient initially had neuro deficits including facial droop and slurred speech. Patient had both these resolved within half an hour. CT and MRI were both negative. We will continue to monitor. 2. Inability to ambulate secondary to left hip pain. MRI showed left hip fracture. Dr. Andrade of orthopedic surgery saw the patient is taken the patient to the OR today. 3. Left hip fracture. Patient will be brought to the operating room today. I did discuss with the patient that if her the episode yesterday was in fact a TIA rather than an episode of syncope and that puts her at increased risk for morbidity mortality during the surgery on top of the patient's chronic kidney disease stage IV. Patient understands these risks and will need to go through with the surgery in order to stabilize the hip fracture. 4. Schizophrenia. Continue home medications. 5. Hypertension. Continue home amlodipine. 6. Chronic kidney disease stage IV. Continue to monitor and avoid nephrotoxic agents. 7. Hypothyroidism. Continue Synthroid DVT Prophylaxis: Teds and sequentials, will start aspirin after surgery. Disposition: Pending clinical improvement and placement in rehab VS,Esperanza, I+O VS, Esperanza, I+O Vital Signs Date Time Temp Pulse Resp B/P (MAP) Pulse Ox O2 Delivery O2 Flow Rate FiO2 02/19/21 07:30 97.5 92 15 136/81 (99) 93 Room Air I&O- Last 24 Hours up to 6 AM 02/19/21 06:00 Intake Total 1620 ml Output Total 1750 ml Balance -130 ml KALPESH RAMIREZ DO Feb 19, 2021 11:03
[2021-02-19] MEDS ORDERED: ePHEDrine SULFATE 25 MG/5 ML(5MG/ML) SYRINGE As Ordered ONE (11:09)
[2021-02-19] MEDS ORDERED: VASOPRESSIN INJ 20 UNITS/ML VIAL As Ordered ONE (11:16)
[2021-02-19] MEDS: ACETAMINOPHEN 500 MG TAB PO PRN (13:49)
[2021-02-19] MEDS: oxyCODONE 5MG TAB PO PRN ×2 (13:50→18:21)
[2021-02-19] MEDS: DOCUSATE SODIUM 100MG CAPSULE PO SCH ×2 (13:51→20:51)
[2021-02-19] MEDS: DIVALPROEX 500 MG TAB PO SCH ×2 (13:51→20:51)
[2021-02-19] MEDS: ASCORBIC ACID 500 MG TAB PO SCH (13:51)
[2021-02-19] MEDS: FERROUS SULFATE 325MG TAB PO SCH (13:51)
[2021-02-19] MEDS: DIVALPROEX 250 MG TAB PO SCH ×2 (13:51→20:51)
--- NOTE | 2021-02-19 14:14 | REP ---
INDICATION: post op in PACU. COMPARISON: Left hip, 02/17/2021. TECHNIQUE: Three images of the left hip were obtained. FINDINGS: There has been interval placement of a medullary nail and compression screw across an intertrochanteric fracture of the left femur. There are no complications evident. IMPRESSION: Status post ORIF left femur fracture. <Electronically signed by Johnie Curiel > 02/19/21 [id number]
[2021-02-19] MEDS: LACTIC ACID 12% LOTION 225 GM BTL TOP SCH (14:38)
[2021-02-19] MEDS: chlorproMAZINE 25 MG TABLET PO SCH ×2 (14:38→14:39)
[2021-02-19] MEDS: OLANZapine 10 MG TAB PO SCH (14:38)
--- NOTE | 2021-02-19 15:04 | ECGEPIP ---
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
[2021-02-19] MEDS ORDERED: LR 1,000 ML IV SCH (15:50)
[2021-02-19 15:56] LABS: HEMATOCRIT 37.5 % (36.0-47.0); HEMOGLOBIN 11.8 g/dl (12.0-15.5); MEAN CORPUSCULAR HEMOGLOBIN 32.7 pg (27.0-33.0); MEAN CORPUSCULAR HGB CONC 31.5 g/dl (32.0-36.5); MEAN CORPUSCULAR VOLUME 103.9 fl (80.0-96.0); PLATELET COUNT, AUTOMATED 208 10^3/uL (150-450); RED BLOOD COUNT 3.61 10^6/uL (4.00-5.40); WHITE BLOOD COUNT 14.3 10^3/uL (4.0-10.0)
[2021-02-19] MEDS ORDERED: ONDANSETRON 4MG/2ML VIAL IV PRN (16:05)
[2021-02-19] MEDS ORDERED: oxyCODONE 5MG TAB PO PRN (16:05)
[2021-02-19 16:29] LABS: CALCIUM LEVEL 9.7 MG/DL (8.5-10.1); CREATININE FOR GFR 2.61 MG/DL (0.55-1.30); MAGNESIUM LEVEL 2.2 MG/DL (1.8-2.4); POTASSIUM SERUM 4.5 MEQ/L (3.5-5.1)
[2021-02-19] MEDS: busPIRone 10 MG TAB PO SCH ×2 (17:26→20:51)
[2021-02-19] MEDS: ceFAZolin SOD 2 GM in IV 1 EA IV SCH (17:27)
[2021-02-19] MEDS: ACETAMINOPHEN TAB 650MG DOSE (2X325MG) PO SCH (17:27)
--- NOTE | 2021-02-19 17:36 | ROOPDOC ---
[facility] Report Of Operation Report of Operation DATE OF PROCEDURE: 02/19/21 PREPROCEDURE DIAGNOSES: Left hip undisplaced intertrochanteric fracture POSTPROCEDURE DIAGNOSES: Left hip undisplaced intertrochanteric fracture. PROCEDURE PERFORMED: Open reduction internal fixation left hip utilizing short IM nail SURGEON: Rickey Kruse MD EXPANDER: Alberta Hernández PAC ANESTHESIA: Spinal. ESTIMATED BLOOD LOSS: Approximately less than 50 mL. COMPLICATIONS: No known complication REMARKS: Patient was seen in the preoperative area and the left lower extremity was marked FINDINGS: Patient had good bone quality SPECIMENS REMOVED: None PROCEDURE NOTE: The patient was brought to the operating room and a surgical pause was carried out. The patient underwent a spinal anesthetic on her bed and then was [facility]. She was placed appropriately in the leg traction bradley and boot with appropriate padding for her left lower extremity. The right lower extremity was placed in the well-leg bradley with appropriate padding. She was secured to the Guitar top table with straps and tape position as well. The patient underwent a standard stat sterile prep and drape of the left lower extremity. X-ray imaging was utilized to lito the anatomic surfaces on the skin for the incision. Utilizing fluoroscopy, a proximal incision was made down to the skin and subcutaneous tissue and down to the fascia. The T-handle awl was then placed at the junction of the anterior two thirds of the greater trochanter. This was advanced. The guidewire was then advanced through this. Position was checked on AP and lateral imaging with fluoroscopy. the opening reamer was utilized to open up the proximal portion of the greater trochanteric region. Position was checked on AP and lateral fluoroscopy. The short intramedullary gamma nail was then introduced and this was placed over the guidewire. A mallet was used to impact this down to the appropriate position until the cephalomedullary screw position was appropriate. The cephalomedullary screw drill guide and wire guide was placed through the guide handle. An incision was made at the appropriate border for the skin and fascia beneath that. This was advanced and secured adjacent to the bone. Using AP and lateral fluoroscopy the guidewire was advanced. This did take some time and the position had to be moved slightly inferior as the patient did have significant sclerotic bone possibly associated with the fracture which may have been in various stages of healing. Once this was appropriately placed, it was overreamed and a 95 mm screw distance was measured. This was then advanced under fluoroscopy until it was in appropriate position center and center of the head. The proximal sliding screw was placed and tightened and then back and off a quarter turn. Physician was confirmed with fluoroscopy . the guides were removed and the distal locking screw guide was placed. The skin and fascia were incised at the level of the guide. This was advanced down to the bone. Positioning was checked with fluoroscopy. The drill guide was advanced followed by the drill. A 40 mm screw was measured. This was placed through the guide and secured in position. AP and lateral fluoroscopy were used to confirm position. Final position was checked with AP and lateral fluoroscopy. The wounds were irrigated out with normal sterile saline. The fascia was closed with #1 Vicryl. The superficial subcutaneous tissue was posed with 2.0 Vicryl followed by skin closure with three-point 0 Monocryl. Steri-Strips were applied followed by Telfa and Tegaderm dressings. The patient's anesthetic was reversed. They were transferred to the bed without incident and taken to recovery room stable with no known complications The patient will be weightbearing as tolerated. RICKEY KRUSE MD Feb 19, 2021 17:36
--- NOTE | 2021-02-19 18:57 | REP ---
INDICATION: IM NAIL IN OR. COMPARISON: None. TECHNIQUE: Fifteen images were obtained intraoperatively with the C-arm during ORIF of a left femur fracture. FINDINGS: There was 140 seconds of fluoro time used. Cumulative dose is 43.3 mGy. IMPRESSION: Same as findings. <Electronically signed by Johnie Curiel > 02/19/21 [id number]
[2021-02-19] MEDS: amLODIPine 5 MG TAB PO SCH (20:50)
[2021-02-19] MEDS: ChlorproMAZINE 100 MG TABLET PO SCH (20:56)
[2021-02-19] MEDS ORDERED: NAPROXEN 250 MG TAB PO SCH (21:00)
[2021-02-20] MEDS: ACETAMINOPHEN TAB 650MG DOSE (2X325MG) PO SCH ×5 (00:27→23:15)
[2021-02-20 02:00] VITALS: BP 168/82
[2021-02-20] MEDS: ceFAZolin SOD 2 GM in IV 1 EA IV SCH (02:18)
[2021-02-20] MEDS: LEVOTHYROXINE 75MCG TABLET (0.075MG) PO SCH (05:14)
[2021-02-20] MEDS: LEVOTHYROXINE 100MCG TABLET (0.1MG) PO SCH (05:14)
[2021-02-20 06:00] VITALS: BP 136/62
[2021-02-20 06:07] LABS: HEMATOCRIT 35.2 % (36.0-47.0); HEMOGLOBIN 11.7 g/dl (12.0-15.5); MEAN CORPUSCULAR HEMOGLOBIN 32.7 pg (27.0-33.0); MEAN CORPUSCULAR HGB CONC 33.2 g/dl (32.0-36.5); MEAN CORPUSCULAR VOLUME 98.3 fl (80.0-96.0); PLATELET COUNT, AUTOMATED 207 10^3/uL (150-450); RED BLOOD COUNT 3.58 10^6/uL (4.00-5.40); WHITE BLOOD COUNT 14.6 10^3/uL (4.0-10.0)
[2021-02-20 06:20] LABS: CALCIUM LEVEL 9.9 MG/DL (8.5-10.1); CREATININE FOR GFR 2.44 MG/DL (0.55-1.30); GLOMERULAR FILTRATION RATE 21.6 (>51); MAGNESIUM LEVEL 2.2 MG/DL (1.8-2.4)
[2021-02-20] MEDS ORDERED: FUROSEMIDE 20MG/2ML VIAL (J1940) IV ONE (07:30)
[2021-02-20] MEDS: DIVALPROEX 250 MG TAB PO SCH ×2 (08:05→20:21)
[2021-02-20] MEDS: DOCUSATE SODIUM 100MG CAPSULE PO SCH ×2 (08:05→20:20)
[2021-02-20] MEDS: traMADol 50 MG TAB PO PRN ×3 (08:05→20:22)
[2021-02-20] MEDS: FERROUS SULFATE 325MG TAB PO SCH (08:05)
[2021-02-20] MEDS: OLANZapine 10 MG TAB PO SCH (08:05)
[2021-02-20] MEDS: ASCORBIC ACID 500 MG TAB PO SCH (08:05)
[2021-02-20] MEDS: DIVALPROEX 500 MG TAB PO SCH ×2 (08:05→20:21)
[2021-02-20] MEDS: ASPIRIN 81MG ENTERIC TABLET PO SCH ×2 (08:05→20:20)
[2021-02-20] MEDS: LACTIC ACID 12% LOTION 225 GM BTL TOP SCH (08:06)
[2021-02-20] MEDS: chlorproMAZINE 25 MG TABLET PO SCH ×2 (08:09→12:33)
[2021-02-20 09:00] VITALS: O2SAT 93
[2021-02-20 10:00] VITALS: BP 137/86
--- NOTE | 2021-02-20 12:41 | IPNPDOC ---
Text Note Date of Service The patient was seen on 02/20/21. NOTE Subjective: Patient is a 60-year-old female present to the hospital to be dis charged and follow at home. Patient was found to have a left hip fracture. Patient had surgery yesterday to fix this. Patient was tachycardic overnight but was otherwise doing well. Patient was only complaining of left hip pain. Patient was otherwise doing well did not have any other complaints. Review of systems: General: Patient denies fevers HEENT: Patient denies headaches Cardiovascular: Patient denies chest pain Respiratory: Patient denies shortness of breath, cough GI: Patient denies abdominal pain, nausea, vomiting, diarrhea : Patient denies increased frequency or pain with urination Extremities: Patient reports pain in her left hip Neurological: Patient denies numbness or tingling in legs Physical exam: Vitals: See below General: Alert and oriented female patient who was sitting up in bed when I walked in the room. Patient did not appear to be in any acute distress. HEENT: Normocephalic, atraumatic, moist mucous membranes. Neck: No lymphadenopathy or thyromegaly Cardiac: Regular rate and rhythm, no murmurs, normal S1, normal S2 Pulm: Bibasilar crackles otherwise clear to auscultation Abd: Nondistended, nontender to palpation, normal bowel sounds Ext: No edema bilateral lower extremities Labs: See below Imaging: X-ray of the hip in the OR performed on 02/18/2021 was reported to show there was 140 seconds of fluoroscopy time used. Cumulative dose is 43.3 mGy Left hip x-ray performed on 02/19/2021 was reported to show status post ORIF left femur fracture Assessment/plan: 60-year-old female initially presented last night following at home with left hip pain ambulate with a rapid assessment called on earlier due to possible CVA which was ruled out was found to have a left hip fracture who was found to be tachycardic this morning 1. Sinus tachycardia. Patient appears fluid overloaded on examination. Patient does have CKD stage IV. Patient will be given a dose of Lasix and will continue to monitor. After the patient's dose of Lasix, patient's heart rate did come back and down into the 80s. Patient also may have been in pain with some anxiety causing the elevated heart rate as well. 2. TIA/syncope. Patient initially had neuro deficits including facial droop and slurred speech however, both these resolved within half an hour. CT and MRI were both negative. Continue to monitor. 3. Inability to ambulate secondary to left hip pain. MRI showed left hip fracture. Patient was in the OR yesterday. 4. Left hip fracture. Brought to the operating room yesterday. Doing well. Continue work physical therapy. Patient is a candidate for ARU. 5. Schizophrenia. Continue home medications. 6. Hypertension. Continue home amlodipine. 7. Chronic kidney disease stage IV. Continue to monitor and avoid nephrotoxic agents. 8. Hypothyroidism. Continue Synthroid DVT Prophylaxis: Aspirin Disposition: Pending placement aru VS,Esperanza, I+O VS, Esperanza I+O Laboratory Tests 02/19/21 15:47 02/20/21 05:28 Vital Signs Date Time Temp Pulse Resp B/P (MAP) Pulse Ox O2 Delivery O2 Flow Rate FiO2 02/20/21 12:34 17 02/20/21 10:00 97.5 100 137/86 (103) 94 Room Air I&O- Last 24 Hours up to 6 AM 02/20/21 06:00 Intake Total 4395 ml Output Total 3150 ml Balance 1245 ml KALPESH RAMIREZ DO Feb 20, 2021 12:41
[2021-02-20 14:00] VITALS: BP 139/87
[2021-02-20] MEDS: busPIRone 10 MG TAB PO SCH ×2 (17:37→20:21)
[2021-02-20] MEDS ORDERED: RIVAROXABAN 10 MG TAB (XARELTO) PO SCH (18:00)
--- NOTE | 2021-02-20 18:38 | IPNPDOC ---
Text Note Date of Service The patient was seen on 02/20/21. NOTE Postop day 1 for left hip short gamma nail for undisplaced left hip fracture Patient was seen this morning. She was lying in bed. She was quite cold so we provided her with some additional blankets. She denied any significant pain. Examination of the left hip demonstrated the Telfa Tegaderm dressings in place with minimal staining to the proximal dressing. No concerns for these otherwise. Examination of the left foot and ankle demonstrate a palpable posterior tibial pulse. The patient had grossly intact sensation to light touch was able to move her left foot and ankle. Postoperative x-ray imaging was independently ordered and reviewed by myself for the recovery room. This demonstrated the left hip short gamma nail in position with no obvious sign of complication. Patient will continue to work with physical therapy. We will likely need rehabilitation placement as it sounds as if she lives in transitional housing. VS,Fishbone, I+O VS, Fishbone, I+O Laboratory Tests 02/20/21 05:28 Vital Signs Date Time Temp Pulse Resp B/P (MAP) Pulse Ox O2 Delivery O2 Flow Rate FiO2 02/20/21 14:00 98.4 98 17 139/87 (104) 92 Room Air I&O- Last 24 Hours up to 6 AM 02/20/21 06:00 Intake Total 4395 ml Output Total 3150 ml Balance 1245 ml STEPHEN KRUSE MD Feb 20, 2021 18:38
[2021-02-20] MEDS: ChlorproMAZINE 100 MG TABLET PO SCH (20:21)
[2021-02-20] MEDS: amLODIPine 5 MG TAB PO SCH (20:22)
[2021-02-20 22:00] VITALS: BP 140/85; O2SAT 92
[2021-02-21 02:22] VITALS: BP 118/81
[2021-02-21 05:00] VITALS: BP 115/76
[2021-02-21] MEDS: ACETAMINOPHEN TAB 650MG DOSE (2X325MG) PO SCH ×3 (05:04→18:04)
[2021-02-21] MEDS: LEVOTHYROXINE 75MCG TABLET (0.075MG) PO SCH (05:04)
[2021-02-21] MEDS: LEVOTHYROXINE 100MCG TABLET (0.1MG) PO SCH (05:04)
[2021-02-21 06:42] LABS: HEMOGLOBIN 11.9 g/dl (12.0-15.5); MEAN CORPUSCULAR HEMOGLOBIN 32.6 pg (27.0-33.0); MEAN CORPUSCULAR HGB CONC 33.1 g/dl (32.0-36.5); MEAN CORPUSCULAR VOLUME 98.6 fl (80.0-96.0); PLATELET COUNT, AUTOMATED 196 10^3/uL (150-450); RED BLOOD COUNT 3.65 10^6/uL (4.00-5.40); WHITE BLOOD COUNT 16.4 10^3/uL (4.0-10.0)
[2021-02-21 07:09] LABS: CALCIUM LEVEL 10.5 MG/DL (8.5-10.1); CREATININE FOR GFR 2.83 MG/DL (0.55-1.30); GLOMERULAR FILTRATION RATE 18.2 (>51); MAGNESIUM LEVEL 2.5 MG/DL (1.8-2.4); POTASSIUM SERUM 4.6 MEQ/L (3.5-5.1)
[2021-02-21] MEDS: DIVALPROEX 250 MG TAB PO SCH ×2 (09:43→21:05)
[2021-02-21] MEDS: ASPIRIN 81MG ENTERIC TABLET PO SCH ×2 (09:43→21:05)
[2021-02-21] MEDS: FERROUS SULFATE 325MG TAB PO SCH (09:43)
[2021-02-21] MEDS: DOCUSATE SODIUM 100MG CAPSULE PO SCH ×2 (09:43→21:06)
[2021-02-21] MEDS: DIVALPROEX 500 MG TAB PO SCH ×2 (09:43→21:05)
[2021-02-21] MEDS: ASCORBIC ACID 500 MG TAB PO SCH (09:43)
[2021-02-21] MEDS: LACTIC ACID 12% LOTION 225 GM BTL TOP SCH (09:44)
[2021-02-21] MEDS: OLANZapine 10 MG TAB PO SCH (09:44)
[2021-02-21] MEDS: traMADol 50 MG TAB PO PRN (09:44)
[2021-02-21] MEDS: chlorproMAZINE 25 MG TABLET PO SCH ×2 (09:44→12:20)
--- NOTE | 2021-02-21 10:49 | REP ---
INDICATION: rales on exam, shortness of breath, leukocytosis. COMPARISON: Radiograph 02/17/2021. TECHNIQUE: CT chest performed without the use of intravenous contrast. Sagittal and coronal reconstruction images are performed. FINDINGS: Lungs: There are diffuse emphysematous changes as well as diffuse fibro atelectatic changes, more so in the posterior lung bases bilaterally. There is ill-defined infiltrate in the posterior segment of the right upper lobe. Mediastinum: No gross adenopathy. Yane: No gross adenopathy. Axilla: No gross adenopathy. Pleura: No effusion. Heart: Not enlarged. Thoracic aorta: There is ectasia of the ascending thoracic aorta, maximum AP diameter is approximately 3.9 cm.. Upper abdominal structures: There is a small hiatal hernia. There is mild bilateral nephrocalcinosis. There is mild dilatation of the visualized right pelvocaliceal system. Visualized osseous structures: There is mild compression of the T10 vertebral body, of indeterminate age. IMPRESSION: Chronic changes with superimposed infiltrate in the posterior segment of the right upper lobe. Mild dilatation of the visualized right pelvocaliceal system. Mild compression of the T10 vertebral body of indeterminate age. <Electronically signed by Dominick Fried > 02/21/21 [id number]
--- NOTE | 2021-02-21 12:47 | IPNPDOC ---
Text Note Date of Service The patient was seen on 02/21/21. NOTE Subjective: Patient is a 60-year-old female who presented to hospital after she was discharged and fell at home. Patient was found to have left hip fracture that was fixed 2 days ago. Patient was tachycardic and was given dose of Lasix yesterday which did help however, patient says she does not feel well today. Patient's leukocyte count continues to rise. Patient denies any fevers. Patient says she has having some difficulty breathing. Patient's oxygen saturations have been stable overnight. Patient did have an episode where she fell overnight however, nursing reports that she lowered herself to the floor and this was witnessed. Patient did not have any injuries or hit her head at this time. Review of systems: General: Patient denies fevers HEENT: Patient denies headaches Cardiovascular: Patient denies chest pain Respiratory: Patient reports difficulty breathing GI: Patient denies abdominal pain, nausea, vomiting, diarrhea : Patient denies increased frequency or pain with urination Extremities: Patient reports pain in her left hip Neurological: Patient denies numbness or tingling in legs Physical exam: Vitals: See below General: Alert and oriented female patient laying in bed when I walked in. Patient did not appear to be in any acute distress HEENT: Normocephalic, atraumatic, moist mucous membranes. Neck: No lymphadenopathy or thyromegaly Cardiac: Regular rate and rhythm, no murmurs, normal S1, normal S2 Pulm: Bibasilar crackles otherwise clear to auscultation bilaterally Abd: Nondistended, nontender to palpation, normal bowel sounds Ext: No edema bilateral lower extremities Labs: See below Imaging: CT scan of the chest performed without contrast on 02/21/2021 is reported to show chronic changes with superimposed infiltrate in the posterior segment of the right upper lobe. Mild dilatation of the visualized right pelvicaliceal system. Mild compression of the T10 vertebral body of indeterminate age Assessment/plan: 60-year-old female initially presented to the hospital after being discharged and falling at home and was found to have a right hip fracture. Rapid assessment team was called due to possible CVA which was ruled out. 1. Sinus tachycardia. Patient appeared fluid overloaded on examination yesterday. Patient did receive a dose of 20 mg of IV Lasix. Patient still is tachycardic at this time and says she is having some difficulty breathing. CT of the chest was ordered today as chest x-ray would not be able to be done due to the patient's pain. Patient was having a difficult time rolling over or taking deep breaths and. 2. Hospital-acquired pneumonia. Patient's been hospitalized since January 31 and now is developing an infiltrate seen on CT. Patient will be started on IV Zosyn renally dosed. We will continue to monitor. 3. TIA/syncope. Initially had neuro deficits on 02/18/2021 but these have since resolved within half an hour. MRI and CTs were negative. 4. Left hip fracture. Brought to the operating room 2 days ago. Doing well from a hip fracture standpoint. Continue work with PT. Candidate for ARU. 5. Schizophrenia. Doing home medication. 6. Hypertension. Continue home amlodipine 7. Chronic kidney disease stage IV. Continue to monitor and avoid nephrotoxic agents. 8. Hypothyroidism. Continue Synthroid DVT Prophylaxis: Aspirin/teds and sequentials Disposition: Pending placement ARU and clinical improvement for pneumonia VS,Esperanza, I+O VS, Esperanza, I+O Laboratory Tests 02/21/21 06:03 Vital Signs Date Time Temp Pulse Resp B/P (MAP) Pulse Ox O2 Delivery O2 Flow Rate FiO2 02/21/21 10:14 17 02/21/21 09:44 97.4 102 115/76 92 Room Air I&O- Last 24 Hours up to 6 AM 02/21/21 06:00 Intake Total 840 ml Output Total 600 ml Balance 240 ml KALPESH RAMIREZ DO Feb 21, 2021 12:47
[2021-02-21] MEDS: PIPERACILLIN/TAZOBACTAM SOD 3.375 GM in D5W MINI-BAG PLUS 50 ML IV SCH ×2 (13:49→21:04)
[2021-02-21 14:00] VITALS: BP 115/76
[2021-02-21] MEDS: busPIRone 10 MG TAB PO SCH ×2 (18:04→21:04)
--- NOTE | 2021-02-21 18:19 | IPNPDOC ---
Text Note Date of Service The patient was seen on 02/21/21. NOTE Postop day 2 left hip open reduction internal fixation shortening The patient has been a little bit fatigued. I spoke with Dr. Santiago and the patient has reportedly developed a little bit of a pneumonia during her course of hospitalization. She is currently being treated for this. She does complain of pain in her left hip which is to be expected given the surgical intervention Dressing is unchanged from yesterday to the left hip with no significant signs of staining to the dressing. Patient is able to move her left foot and ankle As per hospitalist service, plan is for acute rehab unit. Continue treatment for pneumonia. Possible transfer to rehab within the next 1 to 2 days Continue with physical therapy. Follow-up in the office in approximately 2 weeks if discharged from hospital. VS,Titobone, I+O VS, Titobone, I+O Laboratory Tests 02/21/21 06:03 Vital Signs Date Time Temp Pulse Resp B/P (MAP) Pulse Ox O2 Delivery O2 Flow Rate FiO2 02/21/21 14:00 98.5 97 17 115/76 (89) 95 Room Air I&O- Last 24 Hours up to 6 AM 02/21/21 06:00 Intake Total 840 ml Output Total 600 ml Balance 240 ml STEPHEN KRUSE MD Feb 21, 2021 18:19
[2021-02-21] MEDS: amLODIPine 5 MG TAB PO SCH (21:00)
[2021-02-21] MEDS: ChlorproMAZINE 100 MG TABLET PO SCH (21:04)
[2021-02-21 22:00] VITALS: BP 122/84
[2021-02-22 00:43] VITALS: BP 119/65
[2021-02-22] MEDS ORDERED: ZOSYN 3.375GM VIAL (J2543) As Ordered ONE (01:35)
[2021-02-22] MEDS: PIPERACILLIN/TAZOBACTAM SOD 3.375 GM in D5W MINI-BAG PLUS 50 ML IV SCH ×4 (02:00→21:07)
[2021-02-22] MEDS: LEVOTHYROXINE 75MCG TABLET (0.075MG) PO SCH (05:39)
[2021-02-22] MEDS: LEVOTHYROXINE 100MCG TABLET (0.1MG) PO SCH (05:39)
[2021-02-22] MEDS: ACETAMINOPHEN TAB 650MG DOSE (2X325MG) PO SCH ×4 (05:40→17:29)
[2021-02-22 06:00] VITALS: BP 122/82
[2021-02-22 06:09] LABS: HEMATOCRIT 33.6 % (36.0-47.0); MEAN CORPUSCULAR HEMOGLOBIN 32.4 pg (27.0-33.0); MEAN CORPUSCULAR HGB CONC 32.7 g/dl (32.0-36.5); MEAN CORPUSCULAR VOLUME 99.1 fl (80.0-96.0); PLATELET COUNT, AUTOMATED 184 10^3/uL (150-450); RED BLOOD COUNT 3.39 10^6/uL (4.00-5.40); WHITE BLOOD COUNT 12.5 10^3/uL (4.0-10.0)
[2021-02-22 06:34] LABS: CALCIUM LEVEL 10.1 MG/DL (8.5-10.1); CREATININE FOR GFR 2.69 MG/DL (0.55-1.30); GLOMERULAR FILTRATION RATE 19.3 (>51); MAGNESIUM LEVEL 2.8 MG/DL (1.8-2.4); POTASSIUM SERUM 4.1 MEQ/L (3.5-5.1)
[2021-02-22 08:56] LABS: VALPROIC ACID (DEPAKOTE) 72.6 UG/ML (50.0-100.0)
[2021-02-22] MEDS: ASCORBIC ACID 500 MG TAB PO SCH (09:37)
[2021-02-22] MEDS: ASPIRIN 81MG ENTERIC TABLET PO SCH ×2 (09:37→21:07)
[2021-02-22] MEDS: LACTIC ACID 12% LOTION 225 GM BTL TOP SCH (09:37)
[2021-02-22] MEDS: MIRALAX *UNIT DOSE* 17GM PACKET PO SCH (09:37)
[2021-02-22] MEDS: DOCUSATE SODIUM 100MG CAPSULE PO SCH ×2 (09:37→21:07)
[2021-02-22] MEDS: FERROUS SULFATE 325MG TAB PO SCH (09:37)
[2021-02-22] MEDS: OLANZapine 10 MG TAB PO SCH (09:37)
--- NOTE | 2021-02-22 10:53 | IPNPDOC ---
Text Note Date of Service The patient was seen on 02/22/21. NOTE Subjective: Patient is a 60-year-old female presents the hospital after she is discharged fell at home. Patient was found to have a left hip fracture. Patient was found to have pneumonia on CT scan yesterday. Patient's been very sedated which is thought to be secondary to the patient's psychiatric medications combination with her tramadol. Patient is waking up and answering questions and says that she is still complaining of some left hip pain. Patient is otherwise doing well. Patient says her breathing is mildly better. Review of systems: General: Patient denies fevers HEENT: Patient denies headaches Cardiovascular: Patient denies chest pain Respiratory: Patient reports difficulty breathing GI: Patient denies abdominal pain, nausea, vomiting, diarrhea : Patient denies increased frequency or pain with urination Extremities: Patient reports pain in left hip Neurological: Patient denies numbness or tingling in legs Physical exam: Vitals: See below General: Alert and oriented female patient who was sleepy when I walked in who woke up when aroused but did appear very tired. Patient not appear to be in acute distress. HEENT: Normocephalic, atraumatic, moist mucous membranes. Neck: No lymphadenopathy or thyromegaly Cardiac: Regular rate and rhythm, no murmurs, normal S1, normal S2 Pulm: Clear to auscultation bilaterally. No wheezes, rhonchi, rales Abd: Nondistended, nontender to palpation, normal bowel sounds Ext: No edema bilateral lower extremities Labs: See below Imaging: No new imaging was performed Assessment/plan: 60-year-old female initially presented after being discharged and following home was found to have right hip fracture Assessment team was called 4 days ago for possible CVA which has been ruled out. Patient was diagnosed with pneumonia yesterday. 1. Sinus tachycardia. Patient appeared to be fluid overloaded 2 days ago. Received a dose of Lasix. Patient was diagnosed with pneumonia yesterday. Patient's tachycardia has improved since being started on IV Zosyn. 2. Hospital-acquired pneumonia. Patient has been hospitalized since January 31 and has now developed infiltrate on CT. Incentive spirometer was ordered. Patient was on IV Zosyn renally dose. 3. TIA/syncope. Initially had neuro deficits on 02/18/2021 but these resolved within a half an hour. MRI and CTs were negative. No other symptoms since. 4. Lethargy. Patient has been more lethargic and sleeping more over the past day or so. I believe this is a combination of the patient's psychiatric medications and the patient's pain medications. I have held the patient's psychiatric medications at this time. We will continue to monitor the patient. I did check back later in the day and the patient was more awake and sitting up in the chair. We will have to monitor this closely and add her psych meds back slowly. We did order a Depakote level to ensure that her levels not too high and we need to change the dose. 5. Left hip fracture. Brought to the operating room 3 days ago. Doing well. Continue work with PT. Candidate for ARU most likely tomorrow. 6. Schizophrenia. Psychiatric medications on hold due to lethargy. 7. Hypertension. Continue home amlodipine with hold parameters. 8. Chronic kidney disease stage IV. Continue to monitor and avoid nephrotoxic agents. 9. Hypothyroidism. Continue Synthroid. DVT Prophylaxis: Aspirin/teds and sequentials Disposition: Pending clinical improvement, possible discharge to ARU tomorrow VS,Esperanza, I+O VS, Esperanza, I+O Laboratory Tests 02/22/21 05:43 Vital Signs Date Time Temp Pulse Resp B/P (MAP) Pulse Ox O2 Delivery O2 Flow Rate FiO2 02/22/21 06:00 97.6 103 18 122/82 (95) 96 Room Air I&O- Last 24 Hours up to 6 AM 02/22/21 06:00 Intake Total 500 ml Output Total 800 ml Balance -300 ml KALPESH RAMIREZ DO Feb 22, 2021 10:53
[2021-02-22 14:00] VITALS: BP 110/78
[2021-02-22] MEDS: busPIRone 10 MG TAB PO SCH ×2 (17:29→21:07)
[2021-02-22 20:45] VITALS: BP 112/78
[2021-02-22] MEDS: amLODIPine 5 MG TAB PO SCH ×2 (21:00→21:07)
[2021-02-22] MEDS: oxyCODONE 5MG TAB PO PRN (21:08)
[2021-02-23] MEDS: PIPERACILLIN/TAZOBACTAM SOD 3.375 GM in D5W MINI-BAG PLUS 50 ML IV SCH (01:50)
[2021-02-23 05:18] LABS: HEMATOCRIT 32.8 % (36.0-47.0); HEMOGLOBIN 10.7 g/dl (12.0-15.5); MEAN CORPUSCULAR HEMOGLOBIN 32.2 pg (27.0-33.0); MEAN CORPUSCULAR HGB CONC 32.6 g/dl (32.0-36.5); MEAN CORPUSCULAR VOLUME 98.8 fl (80.0-96.0); PLATELET COUNT, AUTOMATED 202 10^3/uL (150-450); RED BLOOD COUNT 3.32 10^6/uL (4.00-5.40); WHITE BLOOD COUNT 10.7 10^3/uL (4.0-10.0)
[2021-02-23] MEDS: LEVOTHYROXINE 100MCG TABLET (0.1MG) PO SCH (05:23)
[2021-02-23] MEDS: LEVOTHYROXINE 75MCG TABLET (0.075MG) PO SCH (05:23)
[2021-02-23] MEDS: ACETAMINOPHEN TAB 650MG DOSE (2X325MG) PO SCH ×4 (05:24→18:57)
[2021-02-23 05:41] LABS: CALCIUM LEVEL 9.7 MG/DL (8.5-10.1); CREATININE FOR GFR 2.86 MG/DL (0.55-1.30); MAGNESIUM LEVEL 2.7 MG/DL (1.8-2.4)
[2021-02-23 06:00] VITALS: BP 94/59
[2021-02-23] MEDS: LevoFLOXacin 750 MG TABLET PO SCH (09:39)
[2021-02-23] MEDS: DIVALPROEX 500 MG TAB PO SCH ×2 (09:39→21:41)
[2021-02-23] MEDS: ASPIRIN 81MG ENTERIC TABLET PO SCH ×2 (09:40→21:40)
[2021-02-23] MEDS: DOCUSATE SODIUM 100MG CAPSULE PO SCH ×2 (09:40→21:40)
[2021-02-23] MEDS: DIVALPROEX 250 MG TAB PO SCH ×2 (09:40→21:40)
[2021-02-23] MEDS: ASCORBIC ACID 500 MG TAB PO SCH (09:40)
[2021-02-23] MEDS: OLANZapine 10 MG TAB PO SCH (09:40)
[2021-02-23] MEDS: MIRALAX *UNIT DOSE* 17GM PACKET PO SCH (09:40)
[2021-02-23] MEDS: LACTIC ACID 12% LOTION 225 GM BTL TOP SCH (09:41)
[2021-02-23] MEDS: chlorproMAZINE 25 MG TABLET PO SCH ×2 (09:47→15:06)
--- NOTE | 2021-02-23 12:03 | IPNPDOC ---
Text Note Date of Service The patient was seen on 02/23/21. NOTE Subjective: Patient is a 60-year-old female presented to hospital after she fell at home. Patient is on a left hip fracture which was surgically repaired on Saturday. Patient was also found to have pneumonia which she was started on antibiotics for. Patient is doing better today. Patient does complain of some pain in her hip but is otherwise feeling well. Patient is eating and drinking without any difficulty at this time. Review of systems: General: Patient denies fevers HEENT: Patient denies headaches Cardiovascular: Patient denies chest pain Respiratory: Patient denies shortness of breath, cough GI: Patient denies abdominal pain, nausea, vomiting, diarrhea : Patient denies increased frequency or pain with urination Extremities: Patient reports pain in her left hip Physical exam: Vitals: See below General: Alert and oriented female patient who was sitting up in bed when I walked in. Patient did not appear to be in any acute distress. HEENT: Normocephalic, atraumatic, moist mucous membranes. Neck: No lymphadenopathy or thyromegaly Cardiac: Regular rate and rhythm, no murmurs, normal S1, normal S2 Pulm: Clear to auscultation bilaterally. No wheezes, rhonchi, rales Abd: Nondistended, nontender to palpation, normal bowel sounds Ext: No edema bilateral lower extremities, dressing on the left hip was clean dry and intact Labs: See below Imaging: No new imaging has been performed Assessment/plan: 60-year-old female initially presented after being discharged and falling at home found to have right hip fracture which was surgically repaired on 02/19/2021. Patient had a rapid assessment team called on her on 02/18/2021 for altered mental status which is since resolved. Patient was also found to have pneumonia and was started on IV Zosyn. 1. Hospital-acquired pneumonia. Patient was initially started on Zosyn but this has been switched to Levaquin which will be renally dosed at 750 mg every 48 hours as the patient's creatinine clearance is 21 by my calculation. Pharmacy can also keep track of the patient's creatinine and adjust the dose as necessary. 2. TIA/syncope. Initially had neuro deficits on 02/18/2021 but these resolved within a half an hour. MRI and CTs were negative. No symptoms since. 3. Lethargy. Patient was more awake and alert throughout the day yesterday after her psychiatric medicines were held. I have cut the dose of her Thorazine in half and we will continue to monitor. 4. Left hip fracture. Brought to the operating room on 02/19/2021. Doing well. Continue to work with physical therapy. Patient is not a candidate for acute rehab and will need subacute rehab. 5. Schizophrenia. Psychiatric medications have as above. 6. Hypertension. Continue home amlodipine with hold parameters. 7. Chronic kidney disease stage IV. Creatinine at baseline. Continue to monitor. 8. Hypothyroidism. Continue Synthroid. DVT Prophylaxis: Heparin Disposition: Pending discharge to subacute rehab. Patient has been made ALC status is the patient is medically cleared. VS,Esperanza, I+O VS, Esperanza, I+O Laboratory Tests 02/23/21 04:39 Vital Signs Date Time Temp Pulse Resp B/P (MAP) Pulse Ox O2 Delivery O2 Flow Rate FiO2 02/23/21 10:06 16 02/23/21 06:00 99.1 95 94/59 (71) 93 Room Air I&O- Last 24 Hours up to 6 AM 02/23/21 06:00 Intake Total 1020 ml Balance 1020 ml KALPESH RAMIREZ DO Feb 23, 2021 12:03
[2021-02-23] MEDS: FERROUS SULFATE 325MG TAB PO SCH (12:30)
[2021-02-23 14:00] VITALS: BP 107/57
[2021-02-23] MEDS: HEPARIN SOD (PORCINE) 5000UNITS/ML 1ML VIAL/SYRINGE SQ SCH ×2 (15:07→21:41)
[2021-02-23] MEDS: busPIRone 10 MG TAB PO SCH ×2 (18:56→21:40)
[2021-02-23 20:03] VITALS: BP 106/62
[2021-02-23] MEDS: amLODIPine 5 MG TAB PO SCH (21:00)
[2021-02-23] MEDS: ChlorproMAZINE 100 MG TABLET PO SCH (21:40)
[2021-02-24 04:36] VITALS: BP 125/77
[2021-02-24 05:24] LABS: HEMATOCRIT 31.2 % (36.0-47.0); HEMOGLOBIN 10.7 g/dl (12.0-15.5); MEAN CORPUSCULAR HEMOGLOBIN 33.8 pg (27.0-33.0); MEAN CORPUSCULAR HGB CONC 34.3 g/dl (32.0-36.5); MEAN CORPUSCULAR VOLUME 98.4 fl (80.0-96.0); PLATELET COUNT, AUTOMATED 205 10^3/uL (150-450); RED BLOOD COUNT 3.17 10^6/uL (4.00-5.40); WHITE BLOOD COUNT 9.7 10^3/uL (4.0-10.0)
[2021-02-24 05:47] LABS: CALCIUM LEVEL 9.7 MG/DL (8.5-10.1); CREATININE FOR GFR 2.83 MG/DL (0.55-1.30); GLOMERULAR FILTRATION RATE 18.2 (>51); MAGNESIUM LEVEL 2.4 MG/DL (1.8-2.4); POTASSIUM SERUM 3.7 MEQ/L (3.5-5.1)
[2021-02-24] MEDS: LEVOTHYROXINE 75MCG TABLET (0.075MG) PO SCH (06:13)
[2021-02-24] MEDS: HEPARIN SOD (PORCINE) 5000UNITS/ML 1ML VIAL/SYRINGE SQ SCH ×3 (06:13→21:27)
[2021-02-24] MEDS: LEVOTHYROXINE 100MCG TABLET (0.1MG) PO SCH (06:13)
[2021-02-24] MEDS: ACETAMINOPHEN TAB 650MG DOSE (2X325MG) PO SCH ×4 (06:14→18:49)
[2021-02-24] MEDS: OLANZapine 10 MG TAB PO SCH (08:43)
[2021-02-24] MEDS: DIVALPROEX 250 MG TAB PO SCH ×2 (08:43→21:26)
[2021-02-24] MEDS: ASCORBIC ACID 500 MG TAB PO SCH (08:43)
[2021-02-24] MEDS: FERROUS SULFATE 325MG TAB PO SCH (08:43)
[2021-02-24] MEDS: MIRALAX *UNIT DOSE* 17GM PACKET PO SCH (08:43)
[2021-02-24] MEDS: ASPIRIN 81MG ENTERIC TABLET PO SCH ×2 (08:43→21:26)
[2021-02-24] MEDS: chlorproMAZINE 25 MG TABLET PO SCH ×2 (08:43→13:01)
[2021-02-24] MEDS: DOCUSATE SODIUM 100MG CAPSULE PO SCH ×2 (08:43→21:24)
[2021-02-24] MEDS: DIVALPROEX 500 MG TAB PO SCH ×2 (08:44→21:26)
[2021-02-24] MEDS: LACTIC ACID 12% LOTION 225 GM BTL TOP SCH (08:44)
[2021-02-24 14:00] VITALS: BP 106/69
[2021-02-24] MEDS ORDERED: CALCIUM CARBONATE 500 MG CHEW U/D PO PRN (14:10)
[2021-02-24] MEDS: busPIRone 10 MG TAB PO SCH ×2 (18:49→21:36)
[2021-02-24] MEDS: amLODIPine 5 MG TAB PO SCH (21:25)
[2021-02-24] MEDS: ChlorproMAZINE 100 MG TABLET PO SCH (21:36)
[2021-02-24 21:59] VITALS: BP 130/78
[2021-02-25] MEDS: traMADol 50 MG TAB PO PRN (04:09)
[2021-02-25] MEDS: LEVOTHYROXINE 100MCG TABLET (0.1MG) PO SCH (05:09)
[2021-02-25] MEDS: HEPARIN SOD (PORCINE) 5000UNITS/ML 1ML VIAL/SYRINGE SQ SCH ×3 (05:09→21:55)
[2021-02-25] MEDS: LEVOTHYROXINE 75MCG TABLET (0.075MG) PO SCH (05:10)
[2021-02-25] MEDS: LevoFLOXacin 750 MG TABLET PO SCH (05:51)
[2021-02-25] MEDS: ACETAMINOPHEN TAB 650MG DOSE (2X325MG) PO SCH ×4 (05:52→17:07)
[2021-02-25 06:00] VITALS: BP 148/76
[2021-02-25 06:55] LABS: HEMATOCRIT 31.5 % (36.0-47.0); HEMOGLOBIN 10.5 g/dl (12.0-15.5); MEAN CORPUSCULAR HEMOGLOBIN 32.8 pg (27.0-33.0); MEAN CORPUSCULAR HGB CONC 33.3 g/dl (32.0-36.5); MEAN CORPUSCULAR VOLUME 98.4 fl (80.0-96.0); PLATELET COUNT, AUTOMATED 225 10^3/uL (150-450); WHITE BLOOD COUNT 8.6 10^3/uL (4.0-10.0)
[2021-02-25 07:21] LABS: CALCIUM LEVEL 9.5 MG/DL (8.5-10.1); CREATININE FOR GFR 2.73 MG/DL (0.55-1.30); MAGNESIUM LEVEL 2.7 MG/DL (1.8-2.4); POTASSIUM SERUM 3.7 MEQ/L (3.5-5.1)
[2021-02-25] MEDS: DIVALPROEX 250 MG TAB PO SCH ×2 (08:03→21:55)
[2021-02-25] MEDS: DIVALPROEX 500 MG TAB PO SCH ×2 (08:03→21:55)
[2021-02-25] MEDS: MIRALAX *UNIT DOSE* 17GM PACKET PO SCH (08:03)
[2021-02-25] MEDS: ASPIRIN 81MG ENTERIC TABLET PO SCH ×2 (08:04→21:54)
[2021-02-25] MEDS: FERROUS SULFATE 325MG TAB PO SCH (08:04)
[2021-02-25] MEDS: DOCUSATE SODIUM 100MG CAPSULE PO SCH ×2 (08:04→21:52)
[2021-02-25] MEDS: ASCORBIC ACID 500 MG TAB PO SCH (08:04)
[2021-02-25] MEDS: chlorproMAZINE 25 MG TABLET PO SCH ×2 (08:04→13:01)
[2021-02-25] MEDS: OLANZapine 10 MG TAB PO SCH (08:04)
[2021-02-25] MEDS: LACTIC ACID 12% LOTION 225 GM BTL TOP SCH (08:05)
[2021-02-25 14:00] VITALS: BP 123/80
[2021-02-25] MEDS: busPIRone 10 MG TAB PO SCH ×2 (17:07→21:54)
[2021-02-25] MEDS: ChlorproMAZINE 100 MG TABLET PO SCH (21:52)
[2021-02-25] MEDS: amLODIPine 5 MG TAB PO SCH (21:54)
[2021-02-25] MEDS: SENNA 8.6 MG TAB (SENOKOT) PO PRN (21:55)
[2021-02-26] MEDS: HEPARIN SOD (PORCINE) 5000UNITS/ML 1ML VIAL/SYRINGE SQ SCH ×3 (05:16→21:16)
[2021-02-26] MEDS: LEVOTHYROXINE 75MCG TABLET (0.075MG) PO SCH (05:16)
[2021-02-26] MEDS: LEVOTHYROXINE 100MCG TABLET (0.1MG) PO SCH (05:16)
[2021-02-26] MEDS: ACETAMINOPHEN TAB 650MG DOSE (2X325MG) PO SCH ×5 (05:16→23:38)
[2021-02-26 05:46] LABS: HEMATOCRIT 32.3 % (36.0-47.0); HEMOGLOBIN 10.8 g/dl (12.0-15.5); MEAN CORPUSCULAR HGB CONC 33.4 g/dl (32.0-36.5); MEAN CORPUSCULAR VOLUME 98.8 fl (80.0-96.0); PLATELET COUNT, AUTOMATED 253 10^3/uL (150-450); RED BLOOD COUNT 3.27 10^6/uL (4.00-5.40); WHITE BLOOD COUNT 9.2 10^3/uL (4.0-10.0)
[2021-02-26 06:00] VITALS: BP 120/82
[2021-02-26 06:18] LABS: CREATININE FOR GFR 2.54 MG/DL (0.55-1.30); GLOMERULAR FILTRATION RATE 20.6 (>51); MAGNESIUM LEVEL 2.6 MG/DL (1.8-2.4); POTASSIUM SERUM 4.3 MEQ/L (3.5-5.1)
[2021-02-26] MEDS: DIVALPROEX 250 MG TAB PO SCH ×2 (08:22→21:15)
[2021-02-26] MEDS: LACTIC ACID 12% LOTION 225 GM BTL TOP SCH (08:22)
[2021-02-26] MEDS: ASCORBIC ACID 500 MG TAB PO SCH (08:22)
[2021-02-26] MEDS: OLANZapine 10 MG TAB PO SCH (08:22)
[2021-02-26] MEDS: ASPIRIN 81MG ENTERIC TABLET PO SCH ×2 (08:22→21:15)
[2021-02-26] MEDS: chlorproMAZINE 25 MG TABLET PO SCH ×2 (08:22→13:27)
[2021-02-26] MEDS: DIVALPROEX 500 MG TAB PO SCH ×2 (08:22→21:15)
[2021-02-26] MEDS: MIRALAX *UNIT DOSE* 17GM PACKET PO SCH (08:22)
[2021-02-26] MEDS: DOCUSATE SODIUM 100MG CAPSULE PO SCH ×2 (08:22→21:15)
[2021-02-26] MEDS: FERROUS SULFATE 325MG TAB PO SCH (08:22)
[2021-02-26 14:00] VITALS: BP 125/81
[2021-02-26] MEDS: busPIRone 10 MG TAB PO SCH ×2 (17:40→21:15)
[2021-02-26] MEDS: ChlorproMAZINE 100 MG TABLET PO SCH (21:15)
[2021-02-26] MEDS: SENNA 8.6 MG TAB (SENOKOT) PO PRN (21:15)
[2021-02-26] MEDS: amLODIPine 5 MG TAB PO SCH (21:16)
[2021-02-27] MEDS: LEVOTHYROXINE 100MCG TABLET (0.1MG) PO SCH (05:29)
[2021-02-27] MEDS: LEVOTHYROXINE 75MCG TABLET (0.075MG) PO SCH (05:29)
[2021-02-27] MEDS: ACETAMINOPHEN TAB 650MG DOSE (2X325MG) PO SCH ×3 (05:29→17:41)
[2021-02-27] MEDS: LevoFLOXacin 750 MG TABLET PO SCH (05:29)
[2021-02-27] MEDS: HEPARIN SOD (PORCINE) 5000UNITS/ML 1ML VIAL/SYRINGE SQ SCH ×3 (05:30→22:22)
[2021-02-27 06:00] VITALS: BP 120/68
[2021-02-27] MEDS: FERROUS SULFATE 325MG TAB PO SCH (08:59)
[2021-02-27] MEDS: ASPIRIN 81MG ENTERIC TABLET PO SCH ×2 (08:59→22:23)
[2021-02-27] MEDS: DOCUSATE SODIUM 100MG CAPSULE PO SCH ×2 (08:59→22:23)
[2021-02-27] MEDS: DIVALPROEX 500 MG TAB PO SCH ×2 (08:59→22:22)
[2021-02-27] MEDS: MIRALAX *UNIT DOSE* 17GM PACKET PO SCH (08:59)
[2021-02-27] MEDS: DIVALPROEX 250 MG TAB PO SCH ×2 (09:00→22:22)
[2021-02-27] MEDS: OLANZapine 10 MG TAB PO SCH (09:00)
[2021-02-27] MEDS: ASCORBIC ACID 500 MG TAB PO SCH (09:00)
[2021-02-27] MEDS: chlorproMAZINE 25 MG TABLET PO SCH ×2 (09:00→13:19)
[2021-02-27] MEDS: LACTIC ACID 12% LOTION 225 GM BTL TOP SCH (09:00)
[2021-02-27] MEDS: busPIRone 10 MG TAB PO SCH ×2 (17:41→22:23)
[2021-02-27] MEDS: ChlorproMAZINE 100 MG TABLET PO SCH (22:23)
[2021-02-27] MEDS: amLODIPine 5 MG TAB PO SCH (22:27)
[2021-02-28] MEDS: ACETAMINOPHEN TAB 650MG DOSE (2X325MG) PO SCH ×4 (00:36→18:00)
[2021-02-28] MEDS: LEVOTHYROXINE 100MCG TABLET (0.1MG) PO SCH (05:49)
[2021-02-28] MEDS: HEPARIN SOD (PORCINE) 5000UNITS/ML 1ML VIAL/SYRINGE SQ SCH ×3 (05:49→20:57)
[2021-02-28] MEDS: LEVOTHYROXINE 75MCG TABLET (0.075MG) PO SCH (05:49)
[2021-02-28 06:31] VITALS: BP 119/97
[2021-02-28] MEDS: DIVALPROEX 250 MG TAB PO SCH ×2 (09:33→20:54)
[2021-02-28] MEDS: DOCUSATE SODIUM 100MG CAPSULE PO SCH ×2 (09:33→20:55)
[2021-02-28] MEDS: ASPIRIN 81MG ENTERIC TABLET PO SCH ×2 (09:33→20:55)
[2021-02-28] MEDS: MIRALAX *UNIT DOSE* 17GM PACKET PO SCH (09:33)
[2021-02-28] MEDS: FERROUS SULFATE 325MG TAB PO SCH (09:33)
[2021-02-28] MEDS: OLANZapine 10 MG TAB PO SCH (09:33)
[2021-02-28] MEDS: chlorproMAZINE 25 MG TABLET PO SCH ×2 (09:33→13:44)
[2021-02-28] MEDS: ASCORBIC ACID 500 MG TAB PO SCH (09:34)
[2021-02-28] MEDS: LACTIC ACID 12% LOTION 225 GM BTL TOP SCH (09:34)
[2021-02-28] MEDS: DIVALPROEX 500 MG TAB PO SCH ×2 (09:34→20:54)
[2021-02-28] MEDS: busPIRone 10 MG TAB PO SCH ×2 (18:00→20:55)
[2021-02-28] MEDS: ChlorproMAZINE 100 MG TABLET PO SCH (20:55)
[2021-02-28] MEDS: traMADol 50 MG TAB PO PRN (20:55)
[2021-02-28] MEDS: amLODIPine 5 MG TAB PO SCH (20:56)
[2021-03-01 06:00] VITALS: BP 120/67
[2021-03-01] MEDS: ACETAMINOPHEN TAB 650MG DOSE (2X325MG) PO SCH ×4 (06:10→17:39)
[2021-03-01] MEDS: LEVOTHYROXINE 75MCG TABLET (0.075MG) PO SCH (06:10)
[2021-03-01] MEDS: LevoFLOXacin 750 MG TABLET PO SCH (06:10)
[2021-03-01] MEDS: LEVOTHYROXINE 100MCG TABLET (0.1MG) PO SCH (06:10)
[2021-03-01] MEDS: HEPARIN SOD (PORCINE) 5000UNITS/ML 1ML VIAL/SYRINGE SQ SCH ×3 (06:10→20:43)
--- NOTE | 2021-03-01 07:22 | IPNPDOC ---
Text Note Date of Service The patient was seen on 03/01/21. NOTE POD 10 Left hip ORIF Pt doing well. Improved since seen last week when she was being treated for pneumonia. Denies any c/c. Has not done a lot of rehab due to pneumonia. Dressing unchanged. No new staining. Pt ALC to rehab. Dressing change ordered. F/U in clinic 2 weeks post op or will be seen on P5 if still inpt. VS,Fishbone, I+O VS, Fishbone, I+O Vital Signs Date Time Temp Pulse Resp B/P (MAP) Pulse Ox O2 Delivery O2 Flow Rate FiO2 03/01/21 06:00 97.8 94 18 120/67 (84) 96 Room Air I&O- Last 24 Hours up to 6 AM 03/01/21 06:00 Intake Total 2030 ml Output Total 1600 ml Balance 430 ml STEPHEN KRUSE MD Mar 01, 2021 07:22
[2021-03-01] MEDS: DOCUSATE SODIUM 100MG CAPSULE PO SCH ×2 (08:58→20:48)
[2021-03-01] MEDS: DIVALPROEX 500 MG TAB PO SCH ×2 (08:58→20:49)
[2021-03-01] MEDS: MIRALAX *UNIT DOSE* 17GM PACKET PO SCH (08:58)
[2021-03-01] MEDS: OLANZapine 10 MG TAB PO SCH (08:58)
[2021-03-01] MEDS: ASCORBIC ACID 500 MG TAB PO SCH (08:58)
[2021-03-01] MEDS: ASPIRIN 81MG ENTERIC TABLET PO SCH ×2 (08:58→20:45)
[2021-03-01] MEDS: DIVALPROEX 250 MG TAB PO SCH ×2 (08:58→20:48)
[2021-03-01] MEDS: chlorproMAZINE 25 MG TABLET PO SCH ×2 (08:58→13:02)
[2021-03-01] MEDS: LACTIC ACID 12% LOTION 225 GM BTL TOP SCH (08:59)
[2021-03-01] MEDS: FERROUS SULFATE 325MG TAB PO SCH (08:59)
[2021-03-01] MEDS: busPIRone 10 MG TAB PO SCH ×2 (17:39→20:44)
[2021-03-01 20:49] VITALS: BP 133/88
[2021-03-01] MEDS: ChlorproMAZINE 100 MG TABLET PO SCH (20:49)
[2021-03-01] MEDS: amLODIPine 5 MG TAB PO SCH (20:49)
[2021-03-02] MEDS: HEPARIN SOD (PORCINE) 5000UNITS/ML 1ML VIAL/SYRINGE SQ SCH (05:28)
[2021-03-02] MEDS: LEVOTHYROXINE 75MCG TABLET (0.075MG) PO SCH (05:28)
[2021-03-02] MEDS: ACETAMINOPHEN TAB 650MG DOSE (2X325MG) PO SCH ×2 (05:28)
[2021-03-02] MEDS: LEVOTHYROXINE 100MCG TABLET (0.1MG) PO SCH (05:28)
[2021-03-02 06:00] VITALS: BP 128/78
[2021-03-02 06:35] LABS: HEMATOCRIT 31.6 % (36.0-47.0); HEMOGLOBIN 10.4 g/dl (12.0-15.5); MEAN CORPUSCULAR HEMOGLOBIN 33.1 pg (27.0-33.0); MEAN CORPUSCULAR HGB CONC 32.9 g/dl (32.0-36.5); MEAN CORPUSCULAR VOLUME 100.6 fl (80.0-96.0); PLATELET COUNT, AUTOMATED 251 10^3/uL (150-450); RED BLOOD COUNT 3.14 10^6/uL (4.00-5.40); WHITE BLOOD COUNT 10.9 10^3/uL (4.0-10.0)
[2021-03-02 06:43] LABS: CALCIUM LEVEL 11.3 MG/DL (8.5-10.1); CREATININE FOR GFR 2.38 MG/DL (0.55-1.30); GLOMERULAR FILTRATION RATE 22.2 (>51); MAGNESIUM LEVEL 2.6 MG/DL (1.8-2.4); POTASSIUM SERUM 4.3 MEQ/L (3.5-5.1)
--- NOTE | 2021-03-02 07:47 | DS.PDOC ---
Discharge Summary General Date of Admission Feb 17, 2021 at 19:38 Date of Discharge 03/02/2021 Attending Physician: KALPESH RAMIREZ DO Specialist/Consultants Involve: STEPHEN KRUSE MD Discharge Summary PROCEDURES PERFORMED DURING STAY: Open reduction internal fixation of left hip utilizing short IM nail. ADMITTING DIAGNOSES: 1. Inability to ambulate secondary to left hip pain. 2. Schizophrenia 3. Hypertension 4. Hypothyroidism DISCHARGE DIAGNOSES: 1. Hospital-acquired pneumonia successfully treated with Zosyn and Levaquin. 2. TIA/syncope 3. Lethargy, resolved 4. Left hip fracture 5. Schizophrenia 6. Hypertension 7. Chronic kidney disease stage IV 8. Hypothyroidism COMPLICATIONS/CHIEF COMPLAINT: Hip Pain, Left - Unable To Ambulate. HISTORY OF PRESENT ILLNESS: Patient is a 60-year-old female who presented to the hospital the same day that she was originally discharged after falling at home twice. Patient again fell once getting home and injured her left hip. Patient had been admitted into [facility] for hip contusion and had blood work with physical therapy before passing physical therapy and was discharged. Patient states that she is ambulating with assistance of a cane but she do not feel as though she had enough support in her leg simply buckled out from underneath her. Patient denies syncope, prefall dizziness, chest pain, palpitations. Patient denies striking her head. Patient tells the admitting provider that she fell onto her left hip which again is the reason she was recently admitted and discharged from the service. Fortunately, patient tells me that her pain is necessarily change from how it was before her fall. Patient tells the admitting provider that she believes that she is unable to care for self and would like to seek intermediate placement. At the time of the admitting provider's exam, patient denies any fevers, chills, abdominal pain, nausea, vomiting, diarrhea, constipation, poor appetite, headache, vision changes, hemiparesis, slurred speech. HOSPITAL COURSE: The morning after the patient was admitted, a rapid assessment team was called and the patient as she had fallen back into bed and had some speech slurring and possible facial droop. It was initially thought that the patient had leg weakness but patient was able to move all 4 extremities. Patient had an NIH stroke scale of 2 with the 2 points being for mild facial droop and mild slurred speech. Patient was brought to CT scan where the patient had a negative CT scan. Patient's symptoms resolved within 20 minutes of them initially happening. Nursing staff was at the bedside when the symptoms started around 650 in the morning. Patient was transferred to the ICU as patient may have been a candidate for TPA however, the patient did not require this. MRI and MRA of the brain did not show any acute stroke. Patient did have multiple CT scans and x-rays of her left hip which did not show any fracture however, one of the radiology reports mentioned an MRI for definitive diagnosis. MRI of the left hip was ordered and did show a fracture. Orthopedic surgery was consulted who brought the patient to surgery on 02/19/2021. After the surgery, patient began to develop a leukocytosis and some difficulty breathing. Patient had a CT scan of the chest which showed a small infiltrate. This was initially treated with IV Zosyn due to the patient's recent hospitalization and patient meeting criteria for hospital-acquired pneumonia. Patient's white count improved and the patient was transitioned to p.o. Levaquin dosed for her renal disease. Patient's kidney function remained stable and patient's leukocytosis and breathing improved. Patient was also more somnolent earlier on in her hospitalization which is thought to be secondary to pain medications in combination with her psychiatric medications. All of the patient's psychiatric medications were held for today and the patient woke up and was more alert. Patient's Thorazine was cut in half from 50 twice a day and 200 at night to 25 twice a day and 100 at night. Patient not have any behavioral changes but was more alert and awake. Patient continue with pain control with tramadol. Patient was made ALC status on 02/23/2021 and continue work physical therapy. On 03/02/2021, a bed became available for the patient for subacute rehab. Patient had a negative Covid test. Patient was doing well and was [facility] on 03/02/2021 DISCHARGE MEDICATIONS: Please see below. ALLERGIES: Please see below. PHYSICAL EXAMINATION ON DISCHARGE: VITAL SIGNS: Please see below. General: Alert and oriented female patient was lying in bed when I walked in. Patient did not appear to be in any acute distress. HEENT: Normocephalic, atraumatic, moist mucous membranes. Neck: No lymphadenopathy or thyromegaly Cardiac: Regular rate and rhythm, no murmurs, normal S1, normal S2 Pulm: Clear to auscultation bilaterally. No wheezes, rhonchi, rales Abd: Nondistended, nontender to palpation, normal bowel sounds Ext: 1+ edema in the bilateral lower extremities. Dressing on the left hip is clean dry and intact LABORATORY DATA: Please see below. IMAGING: Chest x-ray performed on 02/17/2021 is reported to show limited evaluation of the lung field showed no evidence of acute patchy opacity or pleural effusion. Right peritracheal nodular density probably representing vascular structures. CT scan of the left hip without contrast performed on 02/17/2021 was reported to show sclerotic line involving the intertrochanteric region. This is likely not a fracture however, consider MRI for better evaluation for incomplete fractures. X-ray of the left femur performed on 02/17/2021 was reported to show see the hip report. No additional abnormalities identified. X-ray of the left hip performed on 02/17/2021 was aborted show new increased bone density seen suggestive of slight impacted trabecular fracture. CT examination recommended for complete evaluation. Head CT performed without contrast on 02/17/2021 is reported to show no acute intracranial abnormality. CT of the pelvis performed without contrast on 02/17/2021 is reported to show no acute findings Head CT performed without contrast on 02/18/2021 was reported to show no acute intracranial process. No intracranial hemorrhage. If clinical concern for acute infarction, MRI with diffusion-weighted sequences or intracranial CTA should be considered. MRI of the brain performed without contrast on 02/18/2021 was reported to show there are occasional nonspecific foci of high signal abnormality in the canales radiata and centrum semiovale. These are best seen on FLAIR images. These foci may represent areas of gliosis, demyelination, and/or chronic ischemic change. No acute infarct is identified. There is moderate cerebral atrophy. MRA of the brain performed without contrast on 02/18/2021 was reported to show the basilar artery small felt to be due to origin of both posterior cerebral arteries. There is no significant arterial stenosis or occlusion. MRI of the left hip performed without contrast on 02/18/2021 was reported to show nondisplaced proximal left femur moral fracture described as a curvilinear low signal band seen in the intertrochanteric left proximal femur on all sequences. There is significant T2 hyper signal seen on both sides of that low signal made extending into the femoral neck and proximal femoral diaphysis. Carotid ultrasound performed on 02/18/2021 was reported to show according to the SRU criteria there is less than 50% stenosis in the internal carotid artery bilaterally. This is secondary to a mild amount of calcified noncalcified atheromatous plaque formation. The sonograph are identified a large thyroid this needs clinical evaluation. Echocardiogram performed on 02/18/2021 was reported to show studies acceptable technical quality. Underlying sinus rhythm. Normal left ventricular size with normal left ventricular systolic function. Grade 1 diastolic dysfunction. No significant valvular disease. Probably mildly elevated central venous pressure. Unable to estimate pulmonary artery pressure X-ray of the hip in the OR performed on 02/18/2021 was reported to show there was 140 seconds of fluoroscopy time used. Cumulative dose is 43.3 mGy Left hip x-ray performed on 02/19/2021 was reported to show status post ORIF left femur fracture CT scan of the chest performed without contrast on 02/21/2021 is reported to show chronic changes with superimposed infiltrate in the posterior segment of the right upper lobe. Mild dilatation of the visualized right pelvicaliceal system. Mild compression of the T10 vertebral body of indeterminate age PROGNOSIS: Fair ACTIVITY: As tolerated. DIET: Renal diet DISCHARGE PLAN: Discharge to the [facility] DISPOSITION: . DISCHARGE INSTRUCTIONS: 1. Follow-up with the provider at [facility]. 2. Continue physical therapy as instructed 3. Return the emergency department if symptoms worsen. ITEMS TO FOLLOWUP ON ON OUTPATIENT: 1. None. DISCHARGE CONDITION: Stable. TIME SPENT ON DISCHARGE: 35 minutes. Vital Signs/I&Os Vital Signs Date Time Temp Pulse Resp B/P (MAP) Pulse Ox O2 Delivery O2 Flow Rate FiO2 03/02/21 06:00 98.1 94 18 128/78 (95) 96 Room Air I&O- Last 24 Hours up to 6 AM 03/02/21 06:00 Intake Total 1560 ml Output Total 700 ml Balance 860 ml Laboratory Data Labs 24H Laboratory Tests 2 03/01/21 15:10: Coronavirus (COVID-19)(PCR) NEGATIVE 03/02/21 05:39: Nucleated Red Blood Cells % (auto) 0.0, Anion Gap 8, Glomerular Filtration Rate 22.2L, Calcium Level 11.3H, Magnesium Level 2.6H CBC/BMP Laboratory Tests 03/02/21 05:39 Discharge Medications Scheduled Amlodipine Besylate (Amlodipine Besylate) 5 Mg Tablet, 5 MG PO QHS, (Reported) Ammonium Lactate (Ammonium Lactate) 12% Cream..g., 1 DOSE TOP DAILY, (Reported) APPLY TO DRY FEET AFTER SHOWER Ascorbic Acid (Vitamin C) 500 Mg Tablet, 500 MG PO DAILY, (Reported) Buspirone HCl (Buspirone HCl) 10 Mg Tablet, 10 MG PO BID, (Reported) DINNERTIME AND BEDTIME Chlorpromazine HCl (Chlorpromazine HCl) 50 Mg Tablet, 50 MG PO BID, (Reported) MORNING AND 1400 Chlorpromazine HCl (Chlorpromazine HCl) 200 Mg Tablet, 200 MG PO QHS, (Reported) Cholecalciferol (Vitamin D3) (Vitamin D3) 50 Mcg Capsule, 50 MCG PO DAILY, (Reported) Cyanocobalamin (Vitamin B-12) (Vitamin B-12) 100 Mcg Tablet, 100 MCG PO DAILY, (Reported) Divalproex Sodium (Depakote) 500 Mg Tablet.dr, 500 MG PO BID, (Reported) TAKES WITH 250MG FOR 750MG TOTAL Divalproex Sodium (Divalproex Sodium) 250 Mg Tablet.dr, 250 MG PO BID, (Reported) TAKES WITH 500MG FOR 750MG TOTAL Docusate Sodium (Docusate Sodium) 100 Mg Capsule, 100 MG PO BID, (Reported) Ferrous Sulfate (Ferrous Sulfate) 325 Mg Tablet.dr, 325 MG PO DAILY, (Reported) Levothyroxine Sodium (Synthroid) 175 Mcg Tablet, 175 MCG PO DAILY, (Reported) Olanzapine (Zyprexa) 10 Mg Tablet, 10 MG PO DAILY, (Reported) Scheduled PRN Acetaminophen (Acetaminophen) 500 Mg Tablet, 1,000 MG PO Q6H PRN for PAIN LEVEL 1-4, (Reported) Albuterol Sulfate (Ventolin Hfa) 18 Gm Hfa.aer.ad, 2 PUFFS INH QID PRN for SOB/WHEEZING, (Reported) Allergies Coded Allergies: aspirin (Verified Allergy, Unknown, 07/26/20) benztropine (Verified Allergy, Unknown, 07/26/20) codeine (Verified Allergy, Unknown, 07/26/20) haloperidol (Verified Allergy, Unknown, 2/23/21) zolpidem (Verified Allergy, Unknown, 07/26/20) KALPESH RAMIREZ DO Mar 02, 2021 07:47
[2021-03-02] MEDS: chlorproMAZINE 25 MG TABLET PO SCH (08:20)
[2021-03-02] MEDS: MIRALAX *UNIT DOSE* 17GM PACKET PO SCH (08:20)
[2021-03-02] MEDS: ASCORBIC ACID 500 MG TAB PO SCH (08:20)
[2021-03-02] MEDS: ASPIRIN 81MG ENTERIC TABLET PO SCH (08:21)
[2021-03-02] MEDS: DIVALPROEX 250 MG TAB PO SCH (08:21)
[2021-03-02] MEDS: DOCUSATE SODIUM 100MG CAPSULE PO SCH (08:21)
[2021-03-02] MEDS: FERROUS SULFATE 325MG TAB PO SCH (08:21)
[2021-03-02] MEDS: OLANZapine 10 MG TAB PO SCH (08:21)
[2021-03-02] MEDS: LACTIC ACID 12% LOTION 225 GM BTL TOP SCH (08:21)
[2021-03-02] MEDS: DIVALPROEX 500 MG TAB PO SCH (08:21)
== END 2021-03-02 09:39 | DRG 308 ==
LOC: M ED 15:57 → M ED INP 19:38 → M MS5PR 02-18 02:30 → M ICU 02-18 07:10 → M MSPAV 02-18 23:52 → M MS5PR 02-19 13:10
PROVIDERS: ADMIT Internal Medicine; ATTEND Family Medicine
PROC: 0QS706Z Reposition Left Upper Femur with Intramedullary Internal Fixation Device, Open Approach (ICD-10-PCS; principal; 2021-02-19 08:00)
DX: S72.145A Nondisplaced intertrochanteric fracture of left femur, initial encounter for closed fracture (principal); N18.4 Chronic kidney disease, stage 4 (severe); F20.9 Schizophrenia, unspecified; G45.9 Transient cerebral ischemic attack, unspecified; I12.9 Hypertensive chronic kidney disease with stage 1 through stage 4 chronic kidney disease, or unspecified chronic kidney disease; E78.5 Hyperlipidemia, unspecified; R26.2 Difficulty in walking, not elsewhere classified; E03.9 Hypothyroidism, unspecified; Z85.43 Personal history of malignant neoplasm of ovary; Z90.710 Acquired absence of both cervix and uterus; Z20.822 Contact with and (suspected) exposure to COVID-19; Z79.899 Other long term (current) drug therapy; Z88.6 Allergy status to analgesic agent; Z88.5 Allergy status to narcotic agent; Z88.8 Allergy status to other drugs, medicaments and biological substances; R47.81 Slurred speech; R29.810 Facial weakness; W18.30XA Fall on same level, unspecified, initial encounter; Y92.018 Other place in single-family (private) house as the place of occurrence of the external cause; Y93.9 Activity, unspecified; Y99.8 Other external cause status; R00.0 Tachycardia, unspecified; J18.9 Pneumonia, unspecified organism; Y95 Nosocomial condition; R53.83 Other fatigue; T40.605A Adverse effect of unspecified narcotics, initial encounter; T43.505A Adverse effect of unspecified antipsychotics and neuroleptics, initial encounter

== ENCOUNTER → 2021-10-23 | Outpatient (CLI) | payer MEDICAID ==
[~2021-10-23] MED LIST changes: +ACET-683 PO; +AMLO1TAB24 PO; +LIDOCAINE 1% MDV 20ML VIAL As Ordered ONE
[2021-10-23 13:15] LABS: BASO % 0.5 % (0.0-1.0); EOS # 0.2 10^3/uL (0.0-0.5); EOS % 2.7 % (0.0-3.0); HEMATOCRIT 31.8 % (36.0-47.0); HEMOGLOBIN 10.1 g/dl (12.0-15.5); LYMPH # 2.2 10^3/uL (1.5-5.0); LYMPH % 26.5 % (24.0-44.0); MEAN CORPUSCULAR HEMOGLOBIN 33.4 pg (27.0-33.0); MEAN CORPUSCULAR HGB CONC 31.8 g/dl (32.0-36.5); MEAN CORPUSCULAR VOLUME 105.3 fl (80.0-96.0); MONO # 1.5 10^3/uL (0.0-0.8); MONO % 18.7 % (2.0-8.0); NEUTROPHILS # 4.1 10^3/uL (1.5-8.5); NEUTROPHILS % 49.3 % (36.0-66.0); PLATELET COUNT, AUTOMATED 188 10^3/uL (150-450); RED BLOOD COUNT 3.02 10^6/uL (4.00-5.40); WHITE BLOOD COUNT 8.2 10^3/uL (4.0-10.0)
[2021-10-23 13:30] VITALS: BP 125/76
== END ==
LOC: M IRPRO 12:02
PROVIDERS: ATTEND Internal Medicine Hematology & Oncology
DX: D47.2 Monoclonal gammopathy (principal)